=== PATIENT | male | born 1960 | race African-American/Black ===

== ENCOUNTER 2017-11-30 18:41 | Emergency (ER) | payer MEDICAID ==
[2017-11-30 22:16] LABS: BASOPHILS 0.1 % (0-2); EOSINOPHILS 0.5 % (0-7); HEMATOCRIT 40.9 % (42.0-54.0); HEMOGLOBIN 13.3 g/dL (13.5-17.5); IMMATURE GRANULOCYTES 1.8 % (0-5); LYMPHOCYTES 11.5 % (15-50); MCH 30.3 pg (26.0-34.0); MCHC 32.5 g/dL (31.0-37.0); MCV 93.2 fL (80.0-100.0); MEAN PLATELET VOLUME 9.5 fL (7.4-10.4); MONOCYTES 9.6 % (2-11); NEUTROPHILS 76.5 % (40-80); PLATELET COUNT 291 10x3/uL (130-400); RBC 4.39 10x6/uL (4.20-6.10); RDW 14.2 % (11.5-14.5); WBC 13.6 10x3/uL (4.8-10.8)
[2017-11-30 22:39] LABS: ALBUMIN 2.9 g/dL (3.4-5.0); ANION GAP 17.7 mmol/L (8-16); BILIRUBIN - TOTAL 0.2 mg/dL (0.2-1.3); CALCIUM 8.6 mg/dL (8.5-10.1); CARBON DIOXIDE 21.3 mmol/L (21.0-32.0); CREATININE - SERUM 1.2 mg/dL (0.6-1.3); PROTEIN - SERUM 8.3 g/dL (6.4-8.2)
[2017-11-30 22:51] LABS: THYROID STIMULATING HORMONE 6.03 uIU/mL (0.36-3.74)
[2017-11-30 23:11] LABS: APPEARANCE CLEAR (CLEAR); BILIRUBIN NEGATIVE (NEGATIVE); COLOR DK YELLOW (YELLOW); GLUCOSE NEGATIVE (NEGATIVE); KETONE SMALL mg/dL (NEGATIVE); NITRITE NEGATIVE (NEGATIVE); PROTEIN NEGATIVE (NEGATIVE); SPECIFIC GRAVITY 1.025 (1.005-1.020)
== END 2017-12-01 00:23 | disposition home or self-care (01) ==
LOC: D.ER 18:41
PROVIDERS: Physician Assistant Medical
DX: R60.0 Localized edema (principal); I50.9 Heart failure, unspecified; E11.9 Type 2 diabetes mellitus without complications; G62.9 Polyneuropathy, unspecified

== ENCOUNTER 2018-01-12 00:53 | Emergency (ER) | payer MEDICARE | END 2018-01-12 02:30 | disposition home or self-care (01) | LOC: D.ER 00:53 | DX: S93.402A Sprain of unspecified ligament of left ankle, initial encounter (principal); W01.0XXA Fall on same level from slipping, tripping and stumbling without subsequent striking against object, initial encounter; Y93.89 Activity, other specified; Y92.019 Unspecified place in single-family (private) house as the place of occurrence of the external cause; S93.602A Unspecified sprain of left foot, initial encounter; I50.9 Heart failure, unspecified; E11.9 Type 2 diabetes mellitus without complications ==

== ENCOUNTER 2018-08-04 13:07 | Emergency (ER) | payer MEDICARE ==
[~2018-08-04] VITALS: Ht 185.4 cm; Wt 191.4 kg
[2018-08-04 13:16] VITALS: Ht 185.4 cm; Wt 191.4 kg
[2018-08-04] MEDS ORDERED: CYMBALTA30 MG PO (13:17)
[2018-08-04] MEDS ORDERED: VITAMIN D250000 UNIT PO (13:18)
[2018-08-04] MEDS ORDERED: DEPAKOTE ER500 MG PO (13:18)
[2018-08-04] MEDS ORDERED: ELIQUIS5 MG PO (13:19)
[2018-08-04] MEDS ORDERED: FAMOTIDINE10 MG PO (13:19)
[2018-08-04] MEDS ORDERED: GLUCOPHAGE1000 MG PO (13:20)
[2018-08-04] MEDS ORDERED: METOPROLOL TART25 MG PO (13:20)
[2018-08-04] MEDS ORDERED: LASIX40 MG PO (13:20)
[2018-08-04] MEDS ORDERED: ISOSORBIDE MONO30 M1 PO (13:20)
[2018-08-04] MEDS ORDERED: TALWIN NX1 TAB PO (13:21)
[2018-08-04] MEDS ORDERED: KLOR-CON M2020 MEQ PO (13:22)
[2018-08-04] MEDS ORDERED: PROVERA10 MG PO (13:27)
[2018-08-04] MEDS ORDERED: SYNTHROID125 MCG PO (13:28)
[2018-08-04] MEDS ORDERED: TOPAMAX50 MG PO (13:28)
[2018-08-04] MEDS ORDERED: ULTRAM50 MG PO (17:18)
[2018-08-04 18:45] VITALS: BP 119/73
== END 2018-08-04 18:46 | disposition home or self-care (01) ==
LOC: D.ER 13:07
DX: S80.02XA Contusion of left knee, initial encounter (principal); S80.01XA Contusion of right knee, initial encounter; W06.XXXA Fall from bed, initial encounter; Y93.89 Activity, other specified; Y92.013 Bedroom of single-family (private) house as the place of occurrence of the external cause; E11.9 Type 2 diabetes mellitus without complications; I11.0 Hypertensive heart disease with heart failure; I50.9 Heart failure, unspecified

== ENCOUNTER 2018-09-06 13:57 | Inpatient (IN) | payer MEDICARE ==
[~2018-09-06] VITALS: Ht 188 cm; Wt 229.6 kg
--- NOTE | ~2018-09-06 | MORECARE ---
CASE MANAGEMENT DISCHARGE SUMMARY PATIENT: FITZ MATAMOROS UNIT: [id number] ADM DATE: 09/08/18 AGE: 58 : 60 SEX: M ROOM/BED: D.3335 AUTHOR: ARADOC PHYSICIAN: REFERRING PHYSICIAN: CHANCE MORLEY MD DATE OF SERVICE: 09/14/18 Discharge Plan Patient Name: FITZ MATAMOROS Facility: [facility]:[place] : 1960 Planned Disposition: Residential Facility Anticipated Discharge Date: 09/15/18 Discharge Date: Expected LOS: 7 Initial Reviewer: [id number] Initial Review Date: 09/06/2018 Generated: 09/14/18 4:37 pm Comments DCP- Discharge Planning Updated by [id number]: Tray Nielsen on 09/14/18 2:[address] Patient Name: FITZ MATAMOROS Encounter No: [id number] : 1960 Primary Insurance: MEDICARE A & B Anticipated DC Date: 09-15-2018 Planned Disposition: Residential Facility External Planned Provider: [facility], MEDICARE REHAB BED. DCP follow-up note: CM RECEIVED SRIRAM EXEMPTION. CM RECEIVED DENIALS FROM [facility] AND [facility]. CM SPOKE TO [facility], , WHO WILL ACCEPT PT, THEY WILL ACCEPT 09-15 THEY HAVE TO ORDER SPECIALTY EQUIPMENT PT IS OVER 500 LBS. FACILITY WILL CALL HOSPITAL TOMORROW WHEN READY TO ACCEPT PATIENT. CM PAGED AND SPOKE TO DR. MORLEY, NOTIFIED OF DISCHARGE ARRANGEMENTS FOR TOMORROW, 09-15. CM CALLED AND SPOKE TO MAGUI MATAMROOS, , WHO IS IN AGREEMENT WITH PLAN FOR DISCHARGE TO [facility]. CM SPOKE TO PT WHO IS IN AGREEMENT WITH PLAN. IMPORTANT MESSAGE FROM MEDICARE PROVIDED AND EXPLAINED. CM FAXED UPDATE AND SRIRAM EXEMPTION TO [facility] AT [phone]. [facility] TO CALL [facility] 09-15-18 WHEN READY TO ACCEPT REPORT AND RECEIVE PT. FAX DISCHARGE INFORMATION TO [facility] AT [phone]. NURSE REPORT TO BE CALLED TO [facility] AT [phone]. [facility] TO ARRANGE VAN TRANSPORTATION. Tray Nielsen CASE MANAGEMENT DCP- Discharge Planning Updated by [id number]: Tray Nielsen on 09/13/18 12:[address] Patient Name: FITZ MATAMOROS Encounter No: [id number] : 1960 Primary Insurance: MEDICARE A & B Anticipated DC Date: 09-11-2018 Planned Disposition: Residential Facility External Planned Provider: [facility] DCP follow-up note: CM RECEVIED REQUEST FROM [facility] REQUESTING REFAX OF [facility] AND DOCUMENTS. CM REFAXED REQUESTED DOCUMENTS TO [facility] AT [phone]. CM RECEIVED DENIALS FROM: [facility], [place], [facility] AND [place]. CM RECEIVED CALLS FROM [facility] AND [facility] WHO ARE STILL CONSIDERING PT FOR REHAB ADMISSION. CM RECEIVED CALL FROM MAGUI MATAMOROS AND UPDATED ON PROGRESS AND DENIALS SO FAR. CM WAITING COMPLETION OF SRIRAM SCREENING AND DETERMINATION. CM WAITING ADMISSION DETERMINATIONS FOR REHAB FROM: [facility], [place], [facility], [facility], [facility], [place] AND [facility]. Tray Nielsen, CASE MANAGEMENT DCP- Discharge Planning Updated by [id number]: Tray Nielsen on 09/12/18 5:[address] Patient Name: FITZ MATAMOROS Encounter No: [id number] : 1960 Primary Insurance: MEDICARE A & B Anticipated DC Date: 09-11-2018 Planned Disposition: Residential Facility External Planned Provider: [facility], MEDICARE REHAB BED DCP follow-up note: CM RECEIVED MESSAGE FROM [facility] WHO INFORMED CM THAT [facility] WOULD ACCEPT PT BUT FAMILY DOES NOT WANT PT PLACED IN [facility]. CM MET WITH PT IN ROOM, CALLED MAGUI VIA PHONE FROM ROOM, . MAGUI INFORMED CM THAT [facility] WAS MISTAKEN, THEY DO WANT SKILLED REHAB, JUST NOT AT [facility] PT'S PAYEE (SISTER IN LAW / TARIK SPOUSE) VISITED [facility] AND FOUND THE FACILITY TO BE UNACCEPTABLE FOR REHAB PLACEMENT. THEY HAVE NO PREFERENCE ON FACILITY IN [place] OR [place] WITH EXCEPTION OF [facility]. SRIRAM COMPLETED WITH ASSISTANCE OF PT AND MAGUI. CHOICE LETTER COMPLETED. CM FAXED SRIRAM TO DR. MORLEY'S OFFICE, CALLED AND PROVIDED UPDATE TO ELOISA AT DR. BALDWIN OFFICE AND ASKED TO GET FORMS SIGNED SOON POSSIBLE. CM LATER CALLED DR. MORLEY'S OFFICE, SPOKE DIRECTLY TO AND PROVIDED UPDATE AND ASKED FOR SIGNED FORM RETURN TO COMPLETE SRIRAM SCREENING. CM RECEIVED [facility] SCREENING, FAXED TO [facility] AT [phone]. CM FAXED REFERRALS FOR [facility], [facility], [facility], [place], [facility], [place], [place], [facility] [facility], [facility], [facility]. CM WAITING COMPLETION OF SRIRAM SCREENING AND DETERMINATION. CM WAITING ADMISSION DETERMINATIONS FOR REHAB FROM: [facility], [facility], [facility], [facility], [place], [place], [facility], [facility], [facility]. Tray Nielsen, CASE MANAGEMENT DCP- Discharge Planning Updated by [id number]: Tray Nielsen on 09/11/18 4:[address] Patient Name: [facility] Admission Status: ER Accout number: [id number] Admission Date: 09-08-2018 : 1960 Admission Diagnosis: Attending: CHANCE MORLEY Current LOS: 3 Anticipated DC Date: 09-11-2018 Planned Disposition: Residential Facility Primary Insurance: MEDICARE A & B PLANNED EXTERNAL PROVIDER: [facility] OR [place], MEDICARE REHAB BED Discharge Planning Comments: CM RECEIVED CALL FROM MAGUI MATAMOROS, . MAGUI REPORTS BEING PT'S BROTHER, PT LIVES WITH FAMILY AT [facility]. MAGUI REPORTS PT WAS IN REHAB AT [facility] 3-4 WEEKS AGO AND NOW CANNOT WALK WELL ENOUGH TO COME HOME. PT NEEDS REHAB TO COME BACK HOME AND HE HAS NO PREFERENCE ON PROVIDER OF REHAB. CM CONTACTED INPATIENT REHAB AT [facility] WHO DECLINED PT THEY FEEL THAT PT WILL NOT BE ABLE TO GO BACK HOME AT DISCHARGE. CM MET WITH PT IN ROOM TO DISCUSS DISCHARGE PLANNING AND NEEDS. PT REPORTS SPEAKING TO HIS BROTHER AND IS IN AGREEMENT WITH REHAB ANYWHERE. PT IS LIVING HIS BROTHER'S HOME, REPORTS TO BE INDEPENDENT IN HIS CARE AT HOME. PT USES A WALKER AT HOME AND HAS NO MEDICAL EQUIPMENT PROVIDER PREFERENCE . PT HAS [facility] HAS BEEN SEEING PT AT HOME FOR NURSING AND THERAPY. CM DISCUSSED AVAILABILITY OF HOME HEALTH, REHAB SERVICES AND MEDICAL EQUIPMENT. PT SIGNED CHOICE FOR [facility] OR [facility], REPORTS HIS BROTHER WILL PICK HIM UP FOR DISCHARGE HOME. IMPORTANT MESSAGE FROM MEDICARE PROVIDED AND EXPLAINED. CM NOTIFIED [facility] AND [facility], , OF REFERRAL WITH DISCHARGE ORDER. CM FAXED REFERRAL TO [facility] AT [phone]. CM WAITING ADMISSION DETERMINATIONS FROM THE [facility]. Bowl Attendant: Tray Nielsen Appended by Tray Nielsen on 09/11/2018 17:10 MARKET STALL VENDOR: CM RECEIVED CALL FROM [facility] WHO INFORMED CM THAT PT WILL REQUIRE [facility] ASSESSMENT FOR [facility] ADMISSION DUE TO POSSIBLE MENTAL RETARDATION NOTED IN CHART. CM TO COMPLETE AND SUBMIT FOR [facility] SCREENING SOON POSSIBLE. CM WAITING ADMISSION DETERMINATIONS FROM THE [facility]. Bowl Attendant: Tray Nielsen Coverage Notice Reviewer: [id number] Timmy Nielsen Notice Issued Date-Time: 09/14/2018 15:18 Notice Type: IM Discharge Notice Notice Delivered To: Patient Relationship to Patient: Firmware Test Engineer Name: Delivery Method: HAND - Hand Delivered Yvonne Days: Prior Verbal Notification: Recipient Understood Notice: Yes Recipient Signature: Yes Med Rec Note Co-signed by Attending: Coverage Notice Comment: Reviewer: [id number] Nielsen Notice Issued Date-Time: 09/11/2018 11:10 Notice Type: IM Discharge Notice Notice Delivered To: Patient Relationship to Patient: Firmware Test Engineer Name: Delivery Method: HAND - Hand Delivered Yvonne Days: Prior Verbal Notification: Recipient Understood Notice: Yes Recipient Signature: Yes Med Rec Note Co-signed by Attending: Coverage Notice Comment: Reviewer: [id number] Timmy Fournier Notice Issued Date-Time: 09/07/2018 17:47 Notice Type: Medicare Outpatient Observation Notice Notice Delivered To: Patient Relationship to Patient: Self Firmware Test Engineer Name: Delivery Method: HAND - Hand Delivered Yvonne Days: Prior Verbal Notification: Recipient Understood Notice: Yes Recipient Signature: Yes Med Rec Note Co-signed by Attending: Coverage Notice Comment: Reviewer: [id number] Timmy Nielsen Notice Issued Date-Time: 09/11/2018 11:10 Notice Type: Patient Choice Letter Notice Delivered To: Patient Relationship to Patient: Firmware Test Engineer Name: Delivery Method: HAND - Hand Delivered Yvonne Days: Prior Verbal Notification: Recipient Understood Notice: Yes Recipient Signature: Yes Med Rec Note Co-signed by Attending: Coverage Notice Comment: [facility] Reviewer: [id number] Timmy Nielsen Notice Issued Date-Time: 09/12/2018 10:00 Notice Type: Patient Choice Letter Notice Delivered To: Family Member Relationship to Patient: Brother Firmware Test Engineer Name: MAGUI MATAMOROS Delivery Method: PHONE - Phone Yvonne Days: Prior Verbal Notification: Recipient Understood Notice: Yes Recipient Signature: Yes Med Rec Note Co-signed by Attending: Coverage Notice Comment: ALL [facility]. Last DP export: 09/14/18 2:28 Patient Name: FITZ MATAMOROS Page [id number] at 1537 All edits/amendments must be made on the electronic document DICTATION DATE: 09/14/18 1536 SCOOP OPERATOR: JUAN LUIS 09/14/18 1536 RPT#: [id number] DC DATE: STATUS: ADM IN [facility] [address] [place] [address] END OF REPORT
--- NOTE | ~2018-09-06 | MORECARE ---
CASE MANAGEMENT DISCHARGE SUMMARY PATIENT: FITZ MATAMOROS UNIT: [id number] ADM DATE: 09/08/18 AGE: 58 : 60 SEX: M ROOM/BED: D.2135 AUTHOR: FAVIO BULLOCK PHYSICIAN: REFERRING PHYSICIAN: CHANCE MORLEY MD DATE OF SERVICE: 09/11/18 Discharge Plan Patient Name: FITZ MATAMOROS [facility] [facility] 1960 Planned Disposition: Correction Facility Anticipated Discharge Date: 09/11/18 Discharge Date: Expected LOS: 3 Initial Reviewer: [id number] Initial Review Date: 09/06/2018 Generated: 09/11/18 3:04 pm External Providers External Provider: [facility] Next Contact Date: 09/11/2018 Service Request Date: Service Type: Resolution: Reviewer: Comments: External Provider: [facility] Next Contact Date: 09/11/2018 Service Request Date: Service Type: Resolution: Reviewer: Comments: Coverage Notice Reviewer: [id number] Timmy Fournier Notice Issued Date-Time: 09/07/2018 17:47 Notice Type: Medicare Outpatient Observation Notice Notice Delivered To: Patient Relationship to Patient: Self Coffee Sampler Name: Delivery Method: HAND - Hand Delivered Yvonne Days: Prior Verbal Notification: Recipient Understood Notice: Yes Recipient Signature: Yes Med Rec Note Co-signed by Attending: Coverage Notice Comment: Reviewer: [id number] Timmy Nielsen Notice Issued Date-Time: 09/11/2018 11:10 Notice Type: IM Discharge Notice Notice Delivered To: Patient Relationship to Patient: Coffee Sampler Name: Delivery Method: HAND - Hand Delivered Yvonne Days: Prior Verbal Notification: Recipient Understood Notice: Yes Recipient Signature: Yes Med Rec Note Co-signed by Attending: Coverage Notice Comment: Reviewer: [id number] Nielsen Notice Issued Date-Time: 09/11/2018 11:10 Notice Type: Patient Choice Letter Notice Delivered To: Patient Relationship to Patient: Coffee Sampler Name: Delivery Method: HAND - Hand Delivered Yvonne Days: Prior Verbal Notification: Recipient Understood Notice: Yes Recipient Signature: Yes Med Rec Note Co-signed by Attending: Coverage Notice Comment: [facility] Patient Name: FITZ AMTAMOROS Page 11134 at 1404 All edits/amendments must be made on the electronic document DICTATION DATE: 09/11/181402 DRAG OUT WORKER: JUAN LUIS 09/11/181402 RPT#: [id number] DC DATE: STATUS: ADM IN [facility] [address] [place] [address] END OF REPORT
--- NOTE | ~2018-09-06 | MORECARE ---
CASE MANAGEMENT DISCHARGE SUMMARY PATIENT: FITZ MATAMOROS UNIT: [id number] ADM DATE: 09/08/18 AGE: 58 : 60 SEX: M ROOM/BED: D.3322 AUTHOR: ARA,DOC PHYSICIAN: REFERRING PHYSICIAN: CHANCE MORLEY MD DATE OF SERVICE: 09/12/18 Discharge Plan Patient Name: FITZ MATAMOROS [facility] [facility] 1960 Planned Disposition: Penitentiary Facility Anticipated Discharge Date: 09/11/18 Discharge Date: Expected LOS: 3 Initial Reviewer: [id number] Initial Review Date: 09/06/2018 Generated: 09/12/18 6:59 pm Comments DCP- Discharge Planning Updated by [id number]: Tray Nielsen on 09/11/18 4:[address] Patient Name: FITZ MATAMOROS Admission Status: ER Accout number: [id number] Admission Date: 09-08-2018 : 1960 Admission Diagnosis: Attending: CHANCE MORLEY Current LOS: 3 Anticipated DC Date: 09-11-2018 Planned Disposition: Penitentiary Facility Primary Insurance: MEDICARE A & B PLANNED EXTERNAL PROVIDER: [facility] OR [place], MEDICARE REHAB BED Discharge Planning Comments: CM RECEIVED CALL FROM MAGUI SHILOH, . MAGUI REPORTS BEING PT'S BROTHER, PT LIVES WITH FAMILY AT [facility]. MAGUI REPORTS PT WAS IN REHAB AT [facility] 3-4 WEEKS AGO AND NOW CANNOT WALK WELL ENOUGH TO COME HOME. PT NEEDS REHAB TO COME BACK HOME AND HE HAS NO PREFERENCE ON PROVIDER OF REHAB. CM CONTACTED INPATIENT REHAB AT [facility] WHO DECLINED PT THEY FEEL THAT PT WILL NOT BE ABLE TO GO BACK HOME AT DISCHARGE. CM MET WITH PT IN ROOM TO DISCUSS DISCHARGE PLANNING AND NEEDS. PT REPORTS SPEAKING TO HIS BROTHER AND IS IN AGREEMENT WITH REHAB ANYWHERE. PT IS LIVING HIS BROTHER'S HOME, REPORTS TO BE INDEPENDENT IN HIS CARE AT HOME. PT USES A WALKER AT HOME AND HAS NO MEDICAL EQUIPMENT PROVIDER PREFERENCE . PT HAS [facility] HAS BEEN SEEING PT AT HOME FOR NURSING AND THERAPY. CM DISCUSSED AVAILABILITY OF HOME HEALTH, REHAB SERVICES AND MEDICAL EQUIPMENT. PT SIGNED CHOICE FOR [facility] OR [facility], REPORTS HIS BROTHER WILL PICK HIM UP FOR DISCHARGE HOME. IMPORTANT MESSAGE FROM MEDICARE PROVIDED AND EXPLAINED. CM NOTIFIED [facility] AND [facility], , OF REFERRAL WITH DISCHARGE ORDER. CM FAXED REFERRAL TO [facility] AT [phone]. CM WAITING ADMISSION DETERMINATIONS FROM THE [facility]. Wool Dyer: Tray Nielsen Appended by Tray Nielsen on 09/11/2018 17:10 HEATING AND VENTILATING DRAFTER: CM RECEIVED CALL FROM [facility] WHO INFORMED CM THAT PT WILL REQUIRE [facility] ASSESSMENT FOR [facility] F[facility]ILITY ADMISSION DUE TO POSSIBLE MENTAL RETARDATION NOTED IN CHART. CM TO COMPLETE AND SUBMIT FOR [facility] SCREENING SOON POSSIBLE. CM WAITING ADMISSION DETERMINATIONS FROM THE [facility]. Wool Dyer: Tray Nielsen External Providers External Provider: [facility] Next Contact Date: 09/13/2018 Service Request Date: Service Type: Resolution: Reviewer: Comments: External Provider: [facility] Next Contact Date: 09/13/2018 Service Request Date: Service Type: Resolution: Reviewer: Comments: External Provider: [facility] Next Contact Date: 09/13/2018 Service Request Date: Service Type: Resolution: Reviewer: Comments: [facility] Next Contact Date: 09/13/2018 Service Request Date: Service Type: Resolution: Reviewer: Comments: Coverage Notice Reviewer: [id number] Timmy Fournier Notice Issued Date-Time: 09/07/2018 17:47 Notice Type: Medicare Outpatient Observation Notice Notice Delivered To: Patient Relationship to Patient: Self Crusher Name: Delivery Method: HAND - Hand Delivered Yvonne Days: Prior Verbal Notification: Recipient Understood Notice: Yes Recipient Signature: Yes Med Rec Note Co-signed by Attending: Coverage Notice Comment: Reviewer: [id number] Timmy Nielsen Notice Issued Date-Time: 09/11/2018 11:10 Notice Type: Patient Choice Letter Notice Delivered To: Patient Relationship to Patient: Crusher Name: Delivery Method: HAND - Hand Delivered Yvonne Days: Prior Verbal Notification: Recipient Understood Notice: Yes Recipient Signature: Yes Med Rec Note Co-signed by Attending: Coverage Notice Comment: [facility] SN[facility] REHAB Reviewer: [id number] Timmy Nielsen Notice Issued Date-Time: 09/11/2018 11:10 Notice Type: IM Discharge Notice Notice Delivered To: Patient Relationship to Patient: Crusher Name: Delivery Method: HAND - Hand Delivered Yvonne Days: Prior Verbal Notification: Recipient Understood Notice: Yes Recipient Signature: Yes Med Rec Note Co-signed by Attending: Coverage Notice Comment: Last DP export: 09/12/18 4:52 Patient Name: FITZ MATAMOROS Page [phone] at 1759 All edits/amendments must be made on the electronic document DICTATION DATE: 09/12/181757 ORDER TAKERS SUPERVISOR: JUAN LUIS 09/12/181757 RPT#: [id number] [place] DATE: STATUS: ADM IN [facility] [address] [place] [address] END OF REPORT
--- NOTE | ~2018-09-06 | MORECARE ---
CASE MANAGEMENT DISCHARGE SUMMARY PATIENT: FITZ MATAMOROS UNIT: [id number] ADM DATE: 09/08/18 AGE: 58 : 60 SEX: M ROOM/BED: D.5947 AUTHOR: ARA,DOC PHYSICIAN: REFERRING PHYSICIAN: CHANCE MORLEY MD DATE OF SERVICE: 09/12/18 Discharge Plan Patient Name: FITZ MATAMOROS [facility] [facility] 1960 Planned Disposition: Prison Facility Anticipated Discharge Date: 09/11/18 Discharge Date: Expected LOS: 3 Initial Reviewer: [id number] Initial Review Date: 09/06/2018 Generated: 09/12/18 6:45 pm Comments DCP- Discharge Planning Updated by [id number]: Tray Nielsen on 09/11/18 4:[address] Patient Name: FITZ MATAMOROS Admission Status: ER Accout number: [id number] Admission Date: 09-08-2018 : 1960 Admission Diagnosis: Attending: CHANCE MORLEY Current LOS: 3 Anticipated DC Date: 09-11-2018 Planned Disposition: Prison Facility Primary Insurance: MEDICARE A & B PLANNED EXTERNAL PROVIDER: [facility] OR [facility] [facility], MEDICARE REHAB BED Discharge Planning Comments: CM RECEIVED CALL FROM MAGUI SHILOH, . MAGUI REPORTS BEING PT'S BROTHER, PT LIVES WITH FAMILY AT [facility]. MAGUI REPORTS PT WAS IN REHAB AT [facility] 3-4 WEEKS AGO AND NOW CANNOT WALK WELL ENOUGH TO COME HOME. PT NEEDS REHAB TO COME BACK HOME AND HE HAS NO PREFERENCE ON PROVIDER OF REHAB. CM CONTACTED INPATIENT REHAB AT [facility] WHO DECLINED PT THEY FEEL THAT PT WILL NOT BE ABLE TO GO BACK HOME AT DISCHARGE. CM MET WITH PT IN ROOM TO DISCUSS DISCHARGE PLANNING AND NEEDS. PT REPORTS SPEAKING TO HIS BROTHER AND IS IN AGREEMENT WITH REHAB ANYWHERE. PT IS LIVING HIS BROTHER'S HOME, REPORTS TO BE INDEPENDENT IN HIS CARE AT HOME. PT USES A WALKER AT HOME AND HAS NO MEDICAL EQUIPMENT PROVIDER PREFERENCE . PT HAS [facility] HAS BEEN SEEING PT AT HOME FOR NURSING AND THERAPY. CM DISCUSSED AVAILABILITY OF HOME HEALTH, REHAB SERVICES AND MEDICAL EQUIPMENT. PT SIGNED CHOICE FOR [facility], REPORTS HIS BROTHER WILL PICK HIM UP FOR DISCHARGE HOME. IMPORTANT MESSAGE FROM MEDICARE PROVIDED AND EXPLAINED. CM NOTIFIED [facility] AND [facility], , OF REFERRAL WITH DISCHARGE ORDER. CM FAXED REFERRAL TO [facility] AT [phone]. CM WAITING ADMISSION DETERMINATIONS FROM THE [facility]. Manager Asset: Tray Nielsen Appended by Tray Nielesn on 09/11/2018 17:10 MINE FOREMAN: CM RECEIVED CALL FROM [facility] WHO INFORMED CM THAT PT WILL REQUIRE [facility] ASSESSMENT FOR [facility] ADMISSION DUE TO POSSIBLE MENTAL RETARDATION NOTED IN CHART. CM TO COMPLETE AND SUBMIT FOR [facility] SCREENING SOON POSSIBLE. CM WAITING ADMISSION DETERMINATIONS FROM THE [facility]. Manager Asset: Tray Nielsen External Providers External Provider: [facility] Next Contact Date: 09/13/2018 Service Request Date: Service Type: Resolution: Reviewer: Comments: External Provider: [facility] Next Contact Date: 09/13/2018 Service Request Date: Service Type: Resolution: Reviewer: Comments: External Provider: [facility] Next Contact Date: 09/13/2018 Service Request Date: Service Type: Resolution: Reviewer: Comments: Coverage Notice Reviewer: [id number] Timmy Fournier Notice Issued Date-Time: 09/07/2018 17:47 Notice Type: Medicare Outpatient Observation Notice Notice Delivered To: Patient Relationship to Patient: Self Gas Maker Helper Name: Delivery Method: HAND - Hand Delivered Yvonne Days: Prior Verbal Notification: Recipient Understood Notice: Yes Recipient Signature: Yes Med Rec Note Co-signed by Attending: Coverage Notice Comment: Reviewer: [id number] Timmy Nielsen Notice Issued Date-Time: 09/11/2018 11:10 Notice Type: Patient Choice Letter Notice Delivered To: Patient Relationship to Patient: Gas Maker Helper Name: Delivery Method: HAND - Hand Delivered Yvonne Days: Prior Verbal Notification: Recipient Understood Notice: Yes Recipient Signature: Yes Med Rec Note Co-signed by Attending: Coverage Notice Comment: [facility] Reviewer: [id number] Timmy Nielsen Notice Issued Date-Time: 09/11/2018 11:10 Notice Type: IM Discharge Notice Notice Delivered To: Patient Relationship to Patient: Gas Maker Helper Name: Delivery Method: HAND - Hand Delivered Yvonne Days: Prior Verbal Notification: Recipient Understood Notice: Yes Recipient Signature: Yes Med Rec Note Co-signed by Attending: Coverage Notice Comment: Last DP export: 09/12/18 4:38 Patient Name: FITZ MATAMOROS Page [id number] at 1745 All edits/amendments must be made on the electronic document DICTATION DATE: 09/12/181744 TUBING MILL SETTER: JUAN LUIS 09/12/181744 RPT#: [id number] DC DATE: STATUS: ADM IN [facility] [address] [place] [address] END OF REPORT
--- NOTE | ~2018-09-06 | MORECARE ---
CASE MANAGEMENT DISCHARGE SUMMARY PATIENT: FITZ MATAMOROS UNIT: [id number] ADM DATE: 09/08/18 AGE: 58 : 60 SEX: M ROOM/BED: D.4467 AUTHOR: FAVIO BULLOCK PHYSICIAN: REFERRING PHYSICIAN: CHANCE MORLEY MD DATE OF SERVICE: 09/14/18 Discharge Plan Patient Name: FITZ MATAMOROS Facility: [facility]:[place] : 1960 Planned Disposition: Alf Facility Anticipated Discharge Date: 09/15/18 Discharge Date: Expected LOS: 7 Initial Reviewer: [id number] Initial Review Date: 09/06/2018 Generated: 09/14/18 4:28 pm Comments DCP- Discharge Planning Updated by [id number]: Tray Nielsen on 09/13/18 12:[address] Patient Name: FITZ MATAMOROS Encounter No: [id number] : 1960 Primary Insurance: MEDICARE A & B Anticipated DC Date: 09-11-2018 Planned Disposition: Alf Facility External Planned Provider: [facility] DCP follow-up note: CM RECEVIED REQUEST FROM [facility] REQUESTING REFAX OF [facility]IR[facility] AND DOCUMENTS. CM REFAXED REQUESTED DOCUMENTS TO [facility] AT [phone]. CM RECEIVED DENIALS FROM: [facility], [facility], [facility] AND [facility]. CM RECEIVED CALLS FROM [facility] AND [facility] WHO ARE STILL CONSIDERING PT FOR REHAB ADMISSION. CM RECEIVED CALL FROM MAGUI MATAMOROS AND UPDATED ON PROGRESS AND DENIALS SO FAR. CM WAITING COMPLETION OF SRIRAM SCREENING AND DETERMINATION. CM WAITING ADMISSION DETERMINATIONS FOR REHAB FROM: [facility], [facility], [facility], [facility], [facility], [facility] AND [facility]. Tray Nielsen, CASE MANAGEMENT DCP- Discharge Planning Updated by [id number]: Tray Nielsen on 09/12/18 5:[address] Patient Name: FITZ MATAMOROS Encounter No: [id number] : 1960 Primary Insurance: MEDICARE A & B Anticipated DC Date: 09-11-2018 Planned Disposition: Alf Facility External Planned Provider: [facility], MEDICARE REHAB BED DCP follow-up note: CM RECEIVED MESSAGE FROM [facility] WHO INFORMED CM THAT [facility] WOULD ACCEPT PT BUT FAMILY DOES NOT WANT PT PLACED IN [facility] REHAB. CM MET WITH PT IN ROOM, CALLED MAGUI VIA PHONE FROM ROOM, . MAGUI INFORMED CM THAT [facility] WAS MISTAKEN, THEY DO WANT SKILLED REHAB, JUST NOT AT [facility] PT'S PAYEE (SISTER IN LAW / TARIK SPOUSE) VISITED [facility] AND FOUND THE FACILITY TO BE UNACCEPTABLE FOR REHAB PLACEMENT. THEY HAVE NO PREFERENCE ON FACILITY IN [place] OR SUR[place]OUNDING AREA WITH EXCEPTION OF [facility] AND REHAB. SRIRAM COMPLETED WITH ASSISTANCE OF PT AND MAGUI. CHOICE LETTER COMPLETED. CM FAXED SRIRAM TO DR. MORLEY'S OFFICE, CALLED AND PROVIDED UPDATE TO ELOISA AT DR. BALDWIN OFFICE AND ASKED TO GET FORMS SIGNED SOON POSSIBLE. CM LATER CALLED DR. MORLEY'S OFFICE, SPOKE DIRECTLY TO AND PROVIDED UPDATE AND ASKED FOR SIGNED FORM RETURN TO COMPLETE SRIRAM SCREENING. CM RECEIVED SRIRAM SCREENING, FAXED TO [facility] AT [phone]. CM FAXED REFERRALS FOR [facility]CRE[facility], [facility], [facility], [facility], [facility], [facility], [facility], [facility]. CM WAITING COMPLETION OF SRIRAM SCREENING AND DETERMINATION. CM WAITING ADMISSION DETERMINATIONS FOR REHAB FROM: [facility], [facility], [facility], [facility], [facility], [facility], [facility], [facility]. Tray Nielsen, CASE MANAGEMENT DCP- Discharge Planning Updated by [id number]: Tray Nielsen on 09/11/18 4:[address] Patient Name: MADILL MATAMOROS Admission Status: ER Accout number: [id number] Admission Date: 09-08-2018 : 1960 Admission Diagnosis: Attending: CHANCE MORLEY Current LOS: 3 Anticipated DC Date: 09-11-2018 Planned Disposition: Alf Facility Primary Insurance: MEDICARE A & B PLANNED EXTERNAL PROVIDER: [facility] OR [facility], MEDICARE REHAB BED Discharge Planning Comments: CM RECEIVED CALL FROM MAGUI MATAMOROS, . MAGUI REPORTS BEING PT'S BROTHER, [facility]. MAGUI REPORTS PT WAS IN REHAB AT [facility] 3-4 WEEKS AGO AND NOW CANNOT WALK WELL ENOUGH TO COME HOME. PT NEEDS REHAB TO COME BACK HOME AND HE HAS NO PREFERENCE ON PROVIDER OF REHAB. CM CONTACTED INPATIENT REHAB AT [place] WHO DECLINED PT THEY FEEL THAT PT WILL NOT BE ABLE TO GO BACK HOME AT DISCHARGE. CM MET WITH PT IN ROOM TO DISCUSS DISCHARGE PLANNING AND NEEDS. PT REPORTS SPEAKING TO HIS BROTHER AND IS IN AGREEMENT WITH REHAB ANYWHERE. PT IS LIVING HIS BROTHER'S HOME, REPORTS TO BE INDEPENDENT IN HIS CARE AT HOME. PT USES A WALKER AT HOME AND HAS NO MEDICAL EQUIPMENT PROVIDER PREFERENCE . PT HAS [facility] HAS BEEN SEEING PT AT HOME FOR NURSING AND THERAPY. CM DISCUSSED AVAILABILITY OF HOME HEALTH, REHAB SERVICES AND MEDICAL EQUIPMENT. PT SIGNED CHOICE FOR [facility] OR [facility], REPORTS HIS BROTHER WILL PICK HIM UP FOR DISCHARGE HOME. IMPORTANT MESSAGE FROM MEDICARE PROVIDED AND EXPLAINED. [facility], , OF REFERRAL WITH DISCHARGE ORDER. CM FAXED REFERRAL TO [facility] AT [phone]. CM WAITING ADMISSION DETERMINATIONS FROM THE [facility]. Branch General Manager: Tray Nielsen Appended by Tray Nielsen on 09/11/2018 17:10 SINGLE CORNER CUTTER: CM RECEIVED CALL FROM [facility] WHO INFORMED CM THAT PT WILL REQUIRE [facility] ASSESSMENT FOR [facility] ADMISSION DUE TO POSSIBLE MENTAL RETARDATION NOTED IN CHART. CM TO COMPLETE AND SUBMIT FOR [facility] SCREENING SOON POSSIBLE. CM WAITING ADMISSION DETERMINATIONS FROM THE [facility]. Branch General Manager: Tray Nielsen Coverage Notice Reviewer: [id number] - Suzanne Fournier Notice Issued Date-Time: 09/07/2018 17:47 Notice Type: Medicare Outpatient Observation Notice Notice Delivered To: Patient Relationship to Patient: Self Network Analyst Name: Delivery Method: HAND - Hand Delivered Yvonne Days: Prior Verbal Notification: Recipient Understood Notice: Yes Recipient Signature: Yes Med Rec Note Co-signed by Attending: Coverage Notice Comment: Reviewer: [id number] - Tray Nielsen Notice Issued Date-Time: 09/11/2018 11:10 Notice Type: IM Discharge Notice Notice Delivered To: Patient Relationship to Patient: Network Analyst Name: Delivery Method: HAND - Hand Delivered Yvonne Days: Prior Verbal Notification: Recipient Understood Notice: Yes Recipient Signature: Yes Med Rec Note Co-signed by Attending: Coverage Notice Comment: Reviewer: LORY Nielsen Notice Issued Date-Time: 09/11/2018 11:10 Notice Type: Patient Choice Letter Notice Delivered To: Patient Relationship to Patient: Network Analyst Name: Delivery Method: HAND - Hand Delivered Yvonne Days: Prior Verbal Notification: Recipient Understood Notice: Yes Recipient Signature: Yes Med Rec Note Co-signed by Attending: Coverage Notice Comment: [facility] Reviewer: LORY Nielsen Notice Issued Date-Time: 09/12/2018 10:00 Notice Type: Patient Choice Letter Notice Delivered To: Family Member Relationship to Patient: Brother Network Analyst Name: MAGUI MATAMOROS Delivery Method: PHONE - Phone Yvonne Days: Prior Verbal Notification: Recipient Understood Notice: Yes Recipient Signature: Yes Med Rec Note Co-signed by Attending: Coverage Notice Comment: ALL [facility] [place] [place]. Reviewer: LORY Nielsen Notice Issued Date-Time: 09/14/2018 15:18 Notice Type: IM Discharge Notice Notice Delivered To: Patient Relationship to Patient: Network Analyst Name: Delivery Method: HAND - Hand Delivered Yvonne Days: Prior Verbal Notification: Recipient Understood Notice: Yes Recipient Signature: Yes Med Rec Note Co-signed by Attending: Coverage Notice Comment: Last DP export: 09/13/18 12:09 Patient Name: FITZ MATAMOROS Page [phone] at 1528 All edits/amendments must be made on the electronic document DICTATION DATE: 09/14/18 1527 SPRING TACKER: JUAN LUIS 09/14/18 1527 RPT#: [id number] DC DATE: STATUS: ADM IN [facility] [address] [place] [address] END OF REPORT
--- NOTE | ~2018-09-06 | EC ---
PATIENT:FITZ MATAMOROS DATE OF SERVICE: 09/06/18 SEX: M MEDICAL RECORD: [id number] DATE OF : 60 LOCATION:D.M2 D.213 AGE OF PATIENT: 58 ADMISSION DATE: 09/08/18 REFERRING PHYSICIAN: INTERPRETING PHYSICIAN: FRANCISCO GIBSON MD ECHOCARDIOGRAM REPORT ECHO CHARGES 4 ECHO COMPLETE Date: 09/07/18 CLINICAL DIAGNOSIS: WEAKNESS/TIA ECHOCARDIOGRAPHIC MEASUREMENTS (adult normal given) AC root (d.<3.7cm) 3.9 cm LV Septum d (<1.2 cm> 1.5 cm Valve Excursion 2.2 cm LV Septum (systole) 1.6 cm Left Atria (s.<4.0cm> 4.7 cm LVPW d(<1.2cm) 1.5 cm RV (d.<2.3cm) 3.2 cm LVPW (sytole) 1.8 cm LV diastole(<5.6CM) 5.6 cm MV E-F(>70mm/sec) cm LV systole 3.1 cm LVOT Diameter 2.2 cm MV exc.(>10mm) 2.0 cm Est.ejection fraction (50-75%) % DOPPLER: LVIT cm/sec A 102 cm/sec E 35.0 cm/sec LA cm/sec RVSP 13 mmHg LVOT 86 cm/sec AOP1/2T m/s Asc. Ao 111 cm/sec RVOT 71 cm/sec RA cm/sec PA 93 cm/sec AV Gradient Peak 4.94 mmHg AV Mean 2.46 mmHg AV Area 2.0 cm MV Gradient Peak 9.03 mmHg MV Mean 2.47 mmHg MV Area cm COMMENTS: Apprentice Cosmetologist: Nedra CHUA Turbine Subassembler: 1 Dr. Gibson TAPE# PACS Pericardial Effusion N DATE OF SERVICE: 09/07/2018 PROCEDURE: Echocardiogram. FINDINGS: 1. Left ventricle chamber size is within normal limits. Left ventricular systolic function is normal. Overall ejection fraction estimated at 55%. 2. Left atrium is enlarged at 4.7 cm. Right atrium and right ventricle chamber sizes are as well mildly dilated. 3. Valvular structure have normal structure and motion. ECHOCARDIOGRAM REPORT [id number] FITZ MATAMOROS 4. Doppler interrogation reveals no significant valvular insufficiency or stenosis. Pulmonary systolic pressure is estimated at 13 mmHg. 5. No evidence of pericardial effusion or left ventricular thrombus. TRANSINT:[id number] Voice Confirmation ID: [id number] DOCUMENT ID: [id number] FRANCISCO GIBSON MD at 1031 CC: [id number] DICTATION DATE: 09/07/18 1356 RENTAL MANAGEMENT TRAINEE: 09/07/18 1454 ADM IN [facility] [address] [place] [address]
--- NOTE | ~2018-09-06 | MORECARE ---
CASE MANAGEMENT DISCHARGE SUMMARY PATIENT: FITZ MATAMOROS UNIT: [id number] ADM DATE: 09/08/18 AGE: 58 : 60 SEX: M ROOM/BED: D.2885 AUTHOR: ARADOC PHYSICIAN: REFERRING PHYSICIAN: CHANCE MORLEY MD DATE OF SERVICE: 09/17/18 Discharge Plan Patient Name: FITZ MATAMOROS Facility: [facility]:[place] : 1960 Planned Disposition: Group Home Facility Anticipated Discharge Date: 09/17/18 Discharge Date: Expected LOS: 9 Initial Reviewer: [id number] Initial Review Date: 09/06/2018 Generated: 09/17/18 11:35 am Comments DCP- Discharge Planning Updated by [id number]: Tray Nielsen on 09/17/18 9:[address] Patient Name: FITZ MATAMOROS Encounter No: [id number] : 1960 Primary Insurance: MEDICARE A & B Anticipated DC Date: 09-15-2018 Planned Disposition: Group Home Facility External [facility] DCP follow-up note: CM RECEIVED CALL FROM [facility] COM[facility], , WHO INFORMED CM THAT THEY NOW HAVE EQUIPMENT AND CAN RECEIVE PT TODAY. THEIR TRANSPORT SERVICE [facility] CANNOT HANDLE PT'S WEIGHT AND PT WILL NEED TRANSPORTATION TO FACILITY. CM CALLED MAGUI MATAMOROS, PT'S BROTHER, , LEFT DETAILED MESSAGE ASKING FOR TRANSPORTATION ASSISTANCE FROM FAMILY TO GET PT TO [facility] FOR REHAB. CM CALLED DR. BALDWIN' OFFICE AND LEFT MESSAGE WITH ELOISA FOR DR. MORLEY ASKING FOR UPDATED DISCHARGE AND NOTIFYING OF ACCEPTANCE BY [facility]. CM RECEIVED CALL FROM MAGUI WHO INFORMED CM THAT PT TRANSPORTS VIA [employer] AND MEDICAID PAYS FOR IT. CM WAITING UPDATED DISCHARGE INFORMATION FROM DR. MORLEY. FAX DISCHARGE INFORMATION TO [facility] AT [phone]. NURSE REPORT TO BE CALLED TO [facility] AT [phone]. PT TO TRANSPORT VIA AMBULANCE. PATT Sherman DCP- Discharge Planning Updated by [id number]: Tray Nielsen on 09/14/18 2:[address] Patient Name: FITZ MATAMOROS Encounter No: [id number] : 1960 Primary Insurance: MEDICARE A & B Anticipated DC Date: 09-15-2018 Planned Disposition: Group Home Facility External Planned Provider: [facility], MEDICARE REHAB BED. DCP follow-up note: CM RECEIVED SRIRAM EXEMPTION. CM RECEIVED DENIALS FROM [facility] AND [facility]. CM SPOKE TO NAKUL AT [facility], , WHO WILL ACCEPT PT, THEY WILL ACCEPT 09-15 THEY HAVE TO ORDER SPECIALTY EQUIPMENT PT IS OVER 500 LBS. FACILITY WILL CALL HOSPITAL TOMORROW WHEN READY TO ACCEPT PATIENT. CM PAGED AND SPOKE TO DR. MORLEY, NOTIFIED OF DISCHARGE ARRANGEMENTS FOR TOMORROW, 09-15. CM CALLED AND SPOKE TO MAGUI MATAMOROS, , WHO IS IN AGREEMENT WITH PLAN FOR DISCHARGE TO [facility]. CM SPOKE TO PT WHO IS IN AGREEMENT WITH PLAN. IMPORTANT MESSAGE FROM MEDICARE PROVIDED AND EXPLAINED. CM FAXED UPDATE AND SRIRAM EXEMPTION TO [facility] AT [phone]. [facility] TO CALL HOSPITAL 09-15-18 WHEN READY TO ACCEPT REPORT AND RECEIVE PT. FAX DISCHARGE INFORMATION TO [facility] AT [phone]. NURSE REPORT TO BE CALLED TO [facility] AT [phone]. [facility] TO ARRANGE VAN TRANSPORTATION. Tray Nielsen, CASE MANAGEMENT DCP- Discharge Planning Updated by [id number]: Tray Nielsen on 09/13/18 12:[address] Patient Name: FITZ MATAMOROS Encounter No: [id number] : 1960 Primary Insurance: MEDICARE A & B Anticipated DC Date: 09-11-2018 Planned Disposition: Group Home Facility External Planned Provider: [facility] DCP follow-up note: CM RECEVIED REQUEST FROM [employer] REQUESTING REFAX OF SRIRAM AND DOCUMENTS. CM REFAXED REQUESTED DOCUMENTS TO [facility] AT [phone]. CM RECEIVED DENIALS FROM: [facility], [place], [facility] AND [facility]. CM RECEIVED CALLS FROM [facility] AND [facility] WHO ARE STILL CONSIDERING PT FOR REHAB ADMISSION. CM RECEIVED CALL FROM MAGUI MATAMOROS AND UPDATED ON PROGRESS AND DENIALS SO FAR. CM WAITING COMPLETION OF SRIRAM SCREENING AND DETERMINATION. CM WAITING ADMISSION DETERMINATIONS FOR [facility]HAB [facility]: [facility], [facility], [facility], [place] AND [facility]. Tray Nielsen, CASE MANAGEMENT DCP- Discharge Planning Updated by [id number]: Tray Nielsen on 09/12/18 5:[address] Patient Name: FITZ MATAMOROS Encounter No: [id number] : 1960 Primary Insurance: MEDICARE A & B Anticipated DC Date: 09-11-2018 Planned Disposition: Group Home Facility External Planned Provider: [facility], MEDICARE REHAB BED DCP follow-up note: CM RECEIVED MESSAGE FROM [facility] WHO INFORMED CM THAT [facility] WOULD ACCEPT PT BUT FAMILY DOES NOT WANT PT PLACED IN [facility] REHAB. CM MET WITH PT IN ROOM, CALLED MAGUI VIA PHONE FROM ROOM, . MAGUI INFORMED CM THAT [facility] WAS MISTAKEN, THEY DO WANT SKILLED REHAB, JUST NOT AT [facility] PT'S PAYEE (SISTER IN LAW / JALILELEONORAISIDRO SPOUSE) VISITED [facility] AND FOUND THE FACILITY TO BE UNACCEPTABLE FOR REHAB PLACEMENT. THEY HAVE NO PREFERENCE ON FACILITY IN [place] OR [place]OUNDING AREA WITH EXCEPTION OF [facility] AND REHAB. SRIRAM COMPLETED WITH ASSISTANCE OF PT AND MAGUI. CHOICE LETTER COMPLETED. CM FAXED SRIRAM TO DR. MORLEY'S OFFICE, CALLED AND PROVIDED UPDATE TO ELOISA AT DR. BALDWIN OFFICE AND ASKED TO GET FORMS SIGNED SOON POSSIBLE. CM LATER CALLED DR. MORLEY'S OFFICE, SPOKE DIRECTLY TO AND PROVIDED UPDATE AND ASKED FOR SIGNED FORM RETURN TO COMPLETE SRIRAM SCREENING. CM RECEIVED SRIRAM SCREENING, FAXED TO [facility] AT [phone]. CM FAXED REFERRALS FOR REHAB SCREENINGS TO [facility], [facility], [facility], [place], [facility], [facility], [facility] AND [facility]. CM WAITING COMPLETION OF SRIRAM SCREENING AND DETERMINATION. CM WAITING ADMISSION DETERMINATIONS FOR REHAB FROM: [facility], [facility], [facility], [place], [place], [place], [facility], [facility] AND [facility]. Tray Nielsen, CASE MANAGEMENT DCP- Discharge Planning Updated by [id number]: Tray Nielsen on 09/11/18 4:[address] Patient Name: FITZ MATAMOROS Admission Status: ER Accout number: [id number] Admission Date: 09-08-2018 : 1960 Admission Diagnosis: Attending: CHANCE MORLEY Current LOS: 3 Anticipated DC Date: 09-11-2018 Planned Disposition: Group Home Facility Primary Insurance: MEDICARE A & B PLANNED EXTERNAL PROVIDER: [facility] OR [facility], MEDICARE REHAB BED Discharge Planning Comments: CM RECEIVED CALL FROM MAGUI MATAMOROS, . MAGUI REPORTS BEING PT'S BROTHER, PT LIVES WITH FAMILY AT [facility]. MAGUI REPORTS PT WAS IN [facility]AB [facility]4 WEEKS A[facility] AND NOW CANNOT WALK WELL ENOUGH TO COME HOME. PT NEEDS REHAB TO COME BACK HOME AND HE HAS NO PREFERENCE ON PROVIDER OF REHAB. CM CONTACTED INPATIENT REHAB AT [place] WHO DECLINED PT THEY FEEL THAT PT WILL NOT BE ABLE TO GO BACK HOME AT DISCHARGE. CM MET WITH PT IN ROOM TO DISCUSS DISCHARGE PLANNING AND NEEDS. PT REPORTS SPEAKING TO HIS BROTHER AND IS IN AGREEMENT WITH REHAB ANYWHERE. PT IS LIVING HIS BROTHER'S HOME, REPORTS TO BE INDEPENDENT IN HIS CARE AT HOME. PT USES A WALKER AT HOME AND HAS NO MEDICAL EQUIPMENT PROVIDER PREFERENCE . PT HAS [facility] HAS BEEN SEEING PT AT HOME FOR NURSING AND THERAPY. CM DISCUSSED AVAILABILITY OF HOME HEALTH, REHAB SERVICES AND MEDICAL EQUIPMENT. PT SIGNED CHOICE FOR [facility] OR [employer], REPORTS HIS BROTHER WILL PICK HIM UP FOR DISCHARGE HOME. IMPORTANT MESSAGE FROM MEDICARE PROVIDED AND EXPLAINED. CM NOTIFIED [facility] AND [facility], , OF REFERRAL WITH DISCHARGE ORDER. CM FAXED REFERRAL TO [facility] AT [phone]. CM WAITING ADMISSION DETERMINATIONS FROM THE [facility] AND [facility]. Salvage Mend Worker: Tray Nielsen Appended by Tary Nielsen on 09/11/2018 17:10 LOGISTICS AND PLANNING MANAGER: CM RECEIVED CALL FROM [facility] WHO INFORMED CM THAT PT WILL REQUIRE [facility] ASSESSMENT FOR [facility] ADMISSION DUE TO POSSIBLE MENTAL RETARDATION NOTED IN CHART. CM TO COMPLETE AND SUBMIT FOR [facility] SCREENING SOON POSSIBLE. CM WAITING ADMISSION DETERMINATIONS FROM [facility]. Salvage Mend Worker: Tray Nielsen DCPIA - Discharge Planning Initial Assessment Updated by LORY: Tray Nielsen on 09/17/18 10:29 am * Is the patient Alert and Oriented? Yes * How many steps to enter\exit or inside your home? * PCP DR. PREET DIAMOND * Pharmacy [facility] * Preadmission Environment Home with Family * ADLs Independent * Equipment Walker Wheelchair * Other Equipment NO MEDICAL EQUIPMENT PROVIDER PREFERENCE * List name and contact numbers for known caregivers / representatives who currently or will assist patient after discharge: MAGUI MATAMOROS, BROTHER, * Verbal permission to speak to the caregivers and representatives has been obtained from the patient. Yes * Community resources currently utilized Home Health * Please name any agencies selected above. [facility], * Additional services required to return to the preadmission environment? Yes * Can the patient safely return to the preadmission environment? Yes * Has this patient been hospitalized within the prior 30 days at any hospital? Yes Coverage Notice Reviewer: [id number] Timmy Nielsen Notice Issued Date-Time: 09/14/2018 15:18 Notice Type: IM Discharge Notice Notice Delivered To: Patient Relationship to Patient: Senior Consumer Insights Consultant Name: Delivery Method: HAND - Hand Delivered Yvonne Days: Prior Verbal Notification: Recipient Understood Notice: Yes Recipient Signature: Yes Med Rec Note Co-signed by Attending: Coverage Notice Comment: Reviewer: [id number] Timmy Nielsen Notice Issued Date-Time: 09/11/2018 11:10 Notice Type: IM Discharge Notice Notice Delivered To: Patient Relationship to Patient: Senior Consumer Insights Consultant Name: Delivery Method: HAND - Hand Delivered Yvonne Days: Prior Verbal Notification: Recipient Understood Notice: Yes Recipient Signature: Yes Med Rec Note Co-signed by Attending: Coverage Notice Comment: Reviewer: [id number] Timmy Fournier Notice Issued Date-Time: 09/07/2018 17:47 Notice Type: Medicare Outpatient Observation Notice Notice Delivered To: Patient Relationship to Patient: Self Senior Consumer Insights Consultant Name: Delivery Method: HAND - Hand Delivered Yvonne Days: Prior Verbal Notification: Recipient Understood Notice: Yes Recipient Signature: Yes Med Rec Note Co-signed by Attending: Coverage Notice Comment: Reviewer: [id number] Timmy Nielsen Notice Issued Date-Time: 09/11/2018 11:10 Notice Type: Patient Choice Letter Notice Delivered To: Patient Relationship to Patient: Senior Consumer Insights Consultant Name: Delivery Method: HAND - Hand Delivered Yvonne Days: Prior Verbal Notification: Recipient Understood Notice: Yes Recipient Signature: Yes Med Rec Note Co-signed by Attending: Coverage Notice Comment: [facility] Reviewer: [id number] Timmy Nielsen Notice Issued Date-Time: 09/12/2018 10:00 Notice Type: Patient Choice Letter Notice Delivered To: Family Member Relationship to Patient: Brother Senior Consumer Insights Consultant Name: MAGUI MATAMOROS Delivery Method: PHONE - Phone Yvonne Days: Prior Verbal Notification: Recipient Understood Notice: Yes Recipient Signature: Yes Med Rec Note Co-signed by Attending: Coverage Notice Comment: ALL [facility]. Last DP export: 09/17/18 9:29 Patient Name: FITZ MATAMOROS Page [phone] at 1035 All edits/amendments must be made on the electronic document DICTATION DATE: 09/17/18 1035 CUSTOMER ASSISTANCE REPRESENTATIVE: JUAN LUIS 09/17/18 1035 RPT#: [id number] DC DATE: STATUS: ADM IN [facility] [address] [place] [address] END OF REPORT
--- NOTE | ~2018-09-06 | MORECARE ---
CASE MANAGEMENT DISCHARGE SUMMARY PATIENT: FITZ MATAMOROS UNIT: [id number] ADM DATE: 09/08/18 AGE: 58 : 60 SEX: M ROOM/BED: D.1465 AUTHOR: ARADOC PHYSICIAN: REFERRING PHYSICIAN: CHANCE MORLEY MD DATE OF SERVICE: 09/17/18 Discharge Plan Patient Name: FITZ MATAMOROS Facility: [facility]:[place] : 1960 Planned Disposition: Penitentiary Facility Anticipated Discharge Date: 09/15/18 Discharge Date: Expected LOS: 7 Initial Reviewer: [id number] Initial Review Date: 09/06/2018 Generated: 09/17/18 11:29 am Comments DCP- Discharge Planning Updated by [id number]: Tray Nielsen on 09/17/18 9:[address] Patient Name: FITZ MATAMOROS Encounter No: [id number] : 1960 Primary Insurance: MEDICARE A & B Anticipated DC Date: 09-15-2018 Planned Disposition: Penitentiary Facility External [facility] MED[facility]ARE REHAB BED DCP follow-up note: CM RECEIVED CALL FROM KATE COMER [facility], , WHO INFORMED CM THAT THEY NOW HAVE EQUIPMENT AND CAN RECEIVE PT TODAY. THEIR TRANSPORT SERVICE [facility] CANNOT HANDLE PT'S WEIGHT AND PT WILL NEED TRANSPORTATION TO FACILITY. CM CALLED MAGUI MATAMOROS, PT'S BROTHER, , LEFT DETAILED MESSAGE ASKING FOR TRANSPORTATION ASSISTANCE FROM FAMILY TO GET PT TO [facility] FOR REHAB. CM CALLED DR. BALDWIN' OFFICE AND LEFT MESSAGE WITH ELOISA FOR DR. MORLEY ASKING FOR UPDATED DISCHARGE AND NOTIFYING OF ACCEPTANCE BY [facility]. CM RECEIVED CALL FROM MAGUI WHO INFORMED CM THAT PT TRANSPORTS VIA [facility] AND MEDICAID PAYS FOR IT. CM WAITING UPDATED DISCHARGE INFORMATION FROM DR. MORLEY. FAX DISCHARGE INFORMATION TO [facility] AT [phone]. NURSE REPORT TO BE CALLED TO [facility] AT [phone]. PT TO TRANSPORT VIA AMBULANCE. PATT Sherman DCP- Discharge Planning Updated by [id number]: Tray Nielsen on 09/14/18 2:[address] Patient Name: FITZ MATAMOROS Encounter No: [id number] : 1960 Primary Insurance: MEDICARE A & B Anticipated DC Date: 09-15-2018 Planned Disposition: Penitentiary Facility External Planned Provider: [facility], MEDICARE REHAB BED. DCP follow-up note: CM RECEIVED [facility] EXEMPTION. CM RECEIVED DENIALS FROM [facility]. CM SPOKE TO NAKUL AT [facility], , WHO WILL ACCEPT PT, THEY WILL ACCEPT 09-15 THEY HAVE TO ORDER SPECIALTY EQUIPMENT PT IS OVER 500 LBS. FACILITY WILL CALL HOSPITAL TOMORROW WHEN READY TO ACCEPT PATIENT. CM PAGED AND SPOKE TO DR. MORLEY, NOTIFIED OF DISCHARGE ARRANGEMENTS FOR TOMORROW, 09-15. CM CALLED AND SPOKE TO MAGUI MATAMOROS, , WHO IS IN AGREEMENT WITH PLAN FOR DISCHARGE TO [facility]. CM SPOKE TO PT WHO IS IN AGREEMENT WITH PLAN. IMPORTANT MESSAGE FROM MEDICARE PROVIDED AND EXPLAINED. CM FAXED UPDATE AND SRIRAM EXEMPTION TO [facility] AT [phone]. [facility] TO CALL HOSPITAL 09-15-18 WHEN READY TO ACCEPT REPORT AND RECEIVE PT. FAX DISCHARGE INFORMATION TO [facility] AT [phone]. NURSE REPORT TO BE CALLED TO [facility] AT [phone]. [facility] TO ARRANGE VAN TRANSPORTATION. Tray Nielsen, CASE MANAGEMENT DCP- Discharge Planning Updated by [id number]: Tray Nielsen on 09/13/18 12:[address] Patient Name: FITZ MATAMOROS Encounter No: [id number] : 1960 Primary Insurance: MEDICARE A & B Anticipated DC Date: 09-11-2018 Planned Disposition: Penitentiary Facility External Planned Provider: [facility] DCP follow-up note: CM RECEVIED REQUEST FROM [employer] REQUESTING REFAX OF [facility] AND DOCUMENTS. CM REFAXED REQUESTED DOCUMENTS TO [employer] AT [phone]. CM RECEIVED DENIALS FROM: [facility], [facility], [facility] AND [facility]. CM RECEIVED CALLS FROM [facility] AND [facility] WHO ARE STILL CONSIDERING PT FOR REHAB ADMISSION. CM RECEIVED CALL FROM MAGUI MATAMOROS AND UPDATED ON PROGRESS AND DENIALS SO FAR. CM WAITING COMPLETION OF SRIRAM SCREENING AND DETERMINATION. CM WAITING ADMISSION DETERMINATIONS FOR REHAB [facility]: [facility], [facility], [facility], [facility] AND [facility]. Tray Nielsen, CASE MANAGEMENT DCP- Discharge Planning Updated by [id number]: Tray Nielsen on 09/12/18 5:[address] Patient Name: FITZ MATAMOROS Encounter No: [id number] : 1960 Primary Insurance: MEDICARE A & B Anticipated DC Date: 09-11-2018 Planned Disposition: Penitentiary Facility External Planned Provider: [facility], MEDICARE REHAB BED DCP follow-up note: CM RECEIVED MESSAGE FROM [facility] WHO INFORMED CM THAT [facility] WOULD ACCEPT PT BUT FAMILY DOES NOT WANT PT PLACED IN [facility] FACILITY REHAB. CM MET WITH PT IN ROOM, CALLED MAGUI VIA PHONE FROM ROOM, . MAGUI INFORMED CM THAT [facility] WAS MISTAKEN, THEY DO WANT SKILLED REHAB, JUST NOT AT [facility] PT'S PAYEE (SISTER IN LAW / JALILELEONORAISIDRO SPOUSE) VISITED [facility] AND FOUND THE FACILITY TO BE UNACCEPTABLE FOR REHAB PLACEMENT. THEY HAVE NO PREFERENCE ON FACILITY IN [place] OR [place] WITH EXCEPTION OF [facility] AND REHAB. [facility]AM COMPLETED WITH ASSISTANCE OF PT AND MAGUI. CHOICE LETTER COMPLETED. CM FAXED SRIRAM TO DR. MORLEY'S OFFICE, CALLED AND PROVIDED UPDATE TO ELOISA AT DR. BALDWIN OFFICE AND ASKED TO GET FORMS SIGNED SOON POSSIBLE. CM LATER CALLED DR. MORLEY'S OFFICE, SPOKE DIRECTLY TO AND PROVIDED UPDATE AND ASKED FOR SIGNED FORM RETURN TO COMPLETE [facility]IRAM SCREENING. CM RECEIVED [facility] SCREENING, FAXED TO [facility] AT [phone]. CM FAXED REFERRALS FOR REHAB SCREENINGS TO [facility], [facility], [facility], [facility], [facility], [facility], [facility] AND [facility]. CM WAITING COMPLETION OF [facility]IRAM SCREENING AND DETERMINATION. CM WAITING ADMISSION DETERMINATIONS FOR REHAB FROM: [facility], [facility], [facility], [facility], [facility], [facility], [facility], [facility] AND [facility]. Tray Nielsen, CASE MANAGEMENT DCP- Discharge Planning Updated by [id number]: Tray Nielsen on 09/11/18 4:[address] Patient Name: FITZ MATAMOROS Admission Status: ER Accout number: [id number] Admission Date: 09-08-2018 : 1960 Admission Diagnosis: Attending: CHANCE MORLEY Current LOS: 3 Anticipated DC Date: 09-11-2018 Planned Disposition: Penitentiary Facility Primary Insurance: MEDICARE A & B PLANNED EXTERNAL PROVIDER: [facility] OR [place], MEDICARE REHAB BED Discharge Planning Comments: CM RECEIVED CALL FROM MAGUI MATAMOROS, . MAGUI REPORTS BEING PT'S BROTHER, PT LIVES WITH FAMILY AT [facility]. MAGUI REPORTS PT WAS IN REHAB AT [facility] 3-4 WEEKS AGO AND NOW CANNOT WALK WELL ENOUGH TO COME HOME. PT NEEDS REHAB TO COME BACK HOME AND HE HAS NO PREFERENCE ON PROVIDER OF REHAB. CM CONTACTED INPATIENT REHAB AT [place] WHO DECLINED PT THEY FEEL THAT PT WILL NOT BE ABLE TO GO BACK HOME AT DISCHARGE. CM MET WITH PT IN ROOM TO DISCUSS DISCHARGE PLANNING AND NEEDS. PT REPORTS SPEAKING TO HIS BROTHER AND IS IN AGREEMENT WITH REHAB ANYWHERE. PT IS LIVING HIS BROTHER'S HOME, REPORTS TO BE INDEPENDENT IN HIS CARE AT HOME. PT USES A WALKER AT HOME AND HAS NO MEDICAL EQUIPMENT PROVIDER PREFERENCE . PT HAS [facility] HAS BEEN SEEING PT AT HOME FOR NURSING AND THERAPY. CM DISCUSSED AVAILABILITY OF HOME HEALTH, REHAB SERVICES AND MEDICAL EQUIPMENT. PT SIGNED CHOICE FOR [facility] OR [facility], REPORTS HIS BROTHER WILL PICK HIM UP FOR DISCHARGE HOME. IMPORTANT MESSAGE FROM MEDICARE PROVIDED AND EXPLAINED. CM NOTIFIED [facility] AND [facility], , OF REFERRAL WITH DISCHARGE ORDER. CM FAXED REFERRAL TO [facility] AT [phone]. CM WAITING ADMISSION DETERMINATIONS FROM [facility] AND [facility]. Centrifugal Wax Molder: Tray Nielsen Appended by Tray Nielsen on 09/11/2018 17:10 FIBERGLASS QUALITY TECHNICIAN: CM RECEIVED CALL FROM [facility] WHO INFORMED CM THAT PT WILL REQUIRE [facility] ASSESSMENT FOR [facility] FACILITY ADMISSION DUE TO POSSIBLE MENTAL RETARDATION NOTED IN CHART. CM TO COMPLETE AND SUBMIT FOR [facility] SCREENING SOON POSSIBLE. CM WAITING ADMISSION DETERMINATIONS FROM [facility]. Centrifugal Wax Molder: Tray Nielsen DCPIA - Discharge Planning Initial Assessment Updated by [id number]: Tray Nielsen on 09/17/18 10:29 am * Is the patient Alert and Oriented? Yes * How many steps to enter\exit or inside your home? * PCP DR. PREET DIAMOND * [facility]acy [facility] * Preadmission Environment Home with Family * ADLs Independent * Equipment Walker Wheelchair * Other Equipment NO MEDICAL EQUIPMENT PROVIDER PREFERENCE * List name and contact numbers for known caregivers / representatives who currently or will assist patient after discharge: MAGUI MATAMOROS, BROTHER, * Verbal permission to speak to the caregivers and representatives has been obtained from the patient. Yes * Community resources currently utilized Home Health * Please name any agencies selected above. [facility], * Additional services required to return to the preadmission environment? Yes * Can the patient safely return to the preadmission environment? Yes * Has this patient been hospitalized within the prior 30 days at any hospital? Yes Coverage Notice Reviewer: [id number] Timmy Fournier Notice Issued Date-Time: 09/07/2018 17:47 Notice Type: Medicare Outpatient Observation Notice Notice Delivered To: Patient Relationship to Patient: Self Fabric Worker Name: Delivery Method: HAND - Hand Delivered Yvonne Days: Prior Verbal Notification: Recipient Understood Notice: Yes Recipient Signature: Yes Med Rec Note Co-signed by Attending: Coverage Notice Comment: Reviewer: [id number] Timmy Nielsen Notice Issued Date-Time: 09/11/2018 11:10 Notice Type: IM Discharge Notice Notice Delivered To: Patient Relationship to Patient: Fabric Worker Name: Delivery Method: HAND - Hand Delivered Yvonne Days: Prior Verbal Notification: Recipient Understood Notice: Yes Recipient Signature: Yes Med Rec Note Co-signed by Attending: Coverage Notice Comment: Reviewer: [id number] Timmy Nielsen Notice Issued Date-Time: 09/11/2018 11:10 Notice Type: Patient Choice Letter Notice Delivered To: Patient Relationship to Patient: Fabric Worker Name: Delivery Method: HAND - Hand Delivered Yvonne Days: Prior Verbal Notification: Recipient Understood Notice: Yes Recipient Signature: Yes Med Rec Note Co-signed by Attending: Coverage Notice Comment: [facility] OR [facility] SN[facility] REHAB Reviewer: [id number] Timmy Nielsen Notice Issued Date-Time: 09/12/2018 10:00 Notice Type: Patient Choice Letter Notice Delivered To: Family Member Relationship to Patient: Brother Fabric Worker Name: MAGUI MATAMOROS Delivery Method: PHONE - Phone Yvonne Days: Prior Verbal Notification: Recipient Understood Notice: Yes Recipient Signature: Yes Med Rec Note Co-signed by Attending: Coverage Notice Comment: ALL SN[facility] REHABS [facility]CEPT [facility] Reviewer: [id number] Timmy Nielsen Notice Issued Date-Time: 09/14/2018 15:18 Notice Type: IM Discharge Notice Notice Delivered To: Patient Relationship to Patient: Fabric Worker Name: Delivery Method: HAND - Hand Delivered Yvonne Days: Prior Verbal Notification: Recipient Understood Notice: Yes Recipient Signature: Yes Med Rec Note Co-signed by Attending: Coverage Notice Comment: Last DP export: 09/14/18 2:37 Patient Name: FITZ MATAMOROS Page [id number] at 1029 All edits/amendments must be made on the electronic document DICTATION DATE: 09/17/18 1028 ARTIFICIAL BREEDING DISTRIBUTOR: JUAN LUIS 09/17/18 1028 RPT#: [id number] DC DATE: STATUS: ADM IN [facility] [address] [place] [address] END OF REPORT
--- NOTE | ~2018-09-06 | MORECARE ---
CASE MANAGEMENT DISCHARGE SUMMARY PATIENT: FITZ MATAMOROS UNIT: [id number] ADM DATE: 09/08/18 AGE: 58 : 60 SEX: M ROOM/BED: D.0605 AUTHOR: [facility]ADOC PHYSICIAN: REFERRING PHYSICIAN: CHANCE MORLEY MD DATE OF SERVICE: 09/17/18 Discharge Plan Patient Name: FITZ MATAMOROS Facility: [facility]:[place] : 1960 Planned Disposition: Intermediate Facility Anticipated Discharge Date: 09/17/18 Discharge Date: Expected LOS: 9 Initial Reviewer: [id number] Initial Review Date: 09/06/2018 Generated: 09/17/18 12:34 pm Comments DCP- Discharge Planning Updated by LORY: Tray Nielsen on 09/17/18 9:[address] Patient Name: FITZ MATAMOROS Encounter No: [id number] : 1960 Primary Insurance: MEDICARE A & B Anticipated DC Date: 09-15-2018 Planned Disposition: Intermediate Facility External [facility] MEDICARE REHAB BED DCP follow-up note: CM RECEIVED CALL FROM KATE COM[facility], , WHO INFORMED CM THAT THEY NOW HAVE EQUIPMENT AND CAN RECEIVE PT TODAY. THEIR TRANSPORT SERVICE [facility] CANNOT HANDLE PT'S WEIGHT AND PT WILL NEED TRANSPORTATION TO FACILITY. CM CALLED MAGUI MATAMOROS, PT'S BROTHER, , LEFT DETAILED MESSAGE ASKING FOR TRANSPORTATION ASSISTANCE FROM FAMILY TO GET PT TO [facility] FOR REHAB. CM CALLED DR. BALDWIN' OFFICE AND LEFT MESSAGE WITH ELOISA FOR DR. MORLEY ASKING FOR UPDATED DISCHARGE AND NOTIFYING OF ACCEPTANCE BY [facility]. CM RECEIVED CALL FROM MAGUI WHO INFORMED CM THAT PT TRANSPORTS VIA [employer] AND MEDICAID PAYS FOR IT. CM WAITING UPDATED DISCHARGE INFORMATION FROM DR. MORLEY. FAX DISCHARGE INFORMATION TO [facility] AT [phone]. NURSE REPORT TO BE CALLED TO [facility] AT [phone]. PT TO TRANSPORT VIA AMBULANCE. PATT Sherman DCP- Discharge Planning Updated by [id number]: Tray Nielsen on 09/14/18 2:[address] Patient Name: FITZ MATAMOROS Encounter No: [id number] : 1960 Primary Insurance: MEDICARE A & B Anticipated DC Date: 09-15-2018 Planned Disposition: Intermediate Facility External Planned Provider: [facility], MEDICARE REHAB BED. DCP follow-up note: CM RECEIVED [facility] EXEMPTION. CM RECEIVED DENIALS FROM [facility] AND [facility]. CM SPOKE TO NAKUL AT [facility], , WHO WILL ACCEPT PT, THEY WILL ACCEPT 09-15 THEY HAVE TO ORDER SPECIALTY EQUIPMENT PT IS OVER 500 LBS. FACILITY WILL CALL HOSPITAL TOMORROW WHEN READY TO ACCEPT PATIENT. CM PAGED AND SPOKE TO DR. MORLEY, NOTIFIED OF DISCHARGE ARRANGEMENTS FOR TOMORROW, 09-15. CM CALLED AND SPOKE TO MAGUI MATAMOROS, , WHO IS IN AGREEMENT WITH PLAN FOR DISCHARGE TO [facility]. CM SPOKE TO PT WHO IS IN AGREEMENT WITH PLAN. IMPORTANT MESSAGE FROM MEDICARE PROVIDED AND EXPLAINED. CM FAXED UPDATE AND SRIRAM EXEMPTION TO [facility] AT [phone]. [facility] TO CALL HOSPITAL 09-15-18 WHEN READY TO ACCEPT REPORT AND RECEIVE PT. FAX DISCHARGE INFORMATION TO [facility] AT [phone]. NURSE REPORT TO BE CALLED TO [facility] AT [phone]. [facility] TO ARRANGE VAN TRANSPORTATION. Tray Nielsen, CASE MANAGEMENT DCP- Discharge Planning Updated by [id number]: Tray Nielsen on 09/13/18 12:[address] Patient Name: FITZ MATAMOROS Encounter No: [id number] : 1960 Primary Insurance: MEDICARE A & B Anticipated DC Date: 09-11-2018 Planned Disposition: Intermediate Facility External Planned Provider: [facility] DCP follow-up note: CM RECEVIED REQUEST FROM [employer] REQUESTING REFAX OF [facility] AND DOCUMENTS. CM REFAXED REQUESTED DOCUMENTS TO [employer] AT [phone]. CM RECEIVED DENIALS FROM: [facility], [facility], [facility] AND [facility]. CM RECEIVED CALLS FROM [facility] AND [facility] WHO ARE STILL CONSIDERING PT FOR REHAB ADMISSION. CM RECEIVED CALL FROM MAGUI MATAMOROS AND UPDATED ON PROGRESS AND DENIALS SO FAR. CM WAITING COMPLETION OF SRIRAM SCREENING AND DETERMINATION. CM WAITING ADMISS[facility]ERMINATIONS [facility]AB [facility], [facility], [facility], [facility] AND [facility]. Tray Nielsen, CASE MANAGEMENT DCP- Discharge Planning Updated by [id number]: Tray Nielsen on 09/12/18 5:[address] Patient Name: FITZ MATAMOROS Encounter No: [id number] : 1960 Primary Insurance: MEDICARE A & B Anticipated DC Date: 09-11-2018 Planned Disposition: Intermediate Facility External Planned Provider: [facility], MEDICARE REHAB BED DCP follow-up note: CM RECEIVED MESSAGE FROM [facility] WHO INFORMED CM THAT [facility] WOULD ACCEPT PT BUT FAMILY DOES NOT WANT PT PLACED IN ASSISTED FACILITY REHAB. CM MET WITH PT IN ROOM, CALLED MAGUI VIA PHONE FROM ROOM, . MAGUI INFORMED CM THAT [facility] WAS MISTAKEN, THEY DO WANT SKILLED REHAB, JUST NOT AT [facility] PT'S PAYEE (SISTER IN LAW / JALILELEONORAISIDRO SPOUSE) VISITED [facility] AND FOUND THE FACILITY TO BE UNACCEPTABLE FOR REHAB PLACEMENT. THEY HAVE NO PREFERENCE ON FACILITY IN [place] OR [place] WITH EXCEPTION OF [facility]. [facility] COMPLETED WITH ASSISTANCE OF PT AND MAGUI. CHOICE LETTER COMPLETED. CM FAXED SRIRAM TO DR. MORLEY'S OFFICE, CALLED AND PROVIDED UPDATE TO ELOISA AT DR. BALDWIN OFFICE AND ASKED TO GET FORMS SIGNED SOON POSSIBLE. CM LATER CALLED DR. MORLEY'S OFFICE, SPOKE DIRECTLY TO AND PROVIDED UPDATE AND ASKED FOR SIGNED FORM RETURN TO COMPLETE SRIRAM SCREENING. CM RECEIVED [facility] SCREENING, FAXED TO [facility] AT [phone]. CM FAXED REFERRALS FOR REHAB SCREENINGS TO [facility], [facility], [facility], [facility], [facility], [facility], [facility] AND [facility]. CM WAITING COMPLETION OF [facility]IRAM SCREENING AND DETERMINATION. CM WAITING ADMISSION DETERMINATIONS FOR REHAB FROM: [facility], [facility], [facility], [facility], [facility], [facility], [facility], [facility] AND [facility]. Tray Nielsen, CASE MANAGEMENT DCP- Discharge Planning Updated by [id number]: Tray Nielsen on 09/11/18 4:[address] Patient Name: FITZ MATAMOROS Admission Status: ER Accout number: [id number] Admission Date: 09-08-2018 : 1960 Admission Diagnosis: Attending: CHANCE MORLEY Current LOS: 3 Anticipated DC Date: 09-11-2018 Planned Disposition: Intermediate Facility Primary Insurance: MEDICARE A & B PLANNED EXTERNAL PROVIDER: [facility] OR [place], MEDICARE REHAB BED Discharge Planning Comments: CM RECEIVED CALL FROM MAGUI MATAMOROS, . MAGUI REPORTS BEING PT'S BROTHER, PT LIVES WITH FAMILY AT [facility]. MAGUI REPORTS PT WAS IN REHAB AT [facility] 3-4 WEEKS AGO AND NOW CANNOT WALK WELL ENOUGH TO COME HOME. PT NEEDS REHAB TO COME BACK HOME AND HE HAS NO PREFERENCE ON PROVIDER OF REHAB. CM CONTACTED INPATIENT REHAB AT [place] WHO DECLINED PT THEY FEEL THAT PT WILL NOT BE ABLE TO GO BACK HOME AT DISCHARGE. CM MET WITH PT IN ROOM TO DISCUSS DISCHARGE PLANNING AND NEEDS. PT REPORTS SPEAKING TO HIS BROTHER AND IS IN AGREEMENT WITH REHAB ANYWHERE. PT IS LIVING HIS BROTHER'S HOME, REPORTS TO BE INDEPENDENT IN HIS CARE AT HOME. PT USES A WALKER AT HOME AND HAS NO MEDICAL EQUIPMENT PROVIDER PREFERENCE . PT HAS [facility] HAS BEEN SEEING PT AT HOME FOR NURSING AND THERAPY. CM DISCUSSED AVAILABILITY OF HOME HEALTH, REHAB SERVICES AND MEDICAL EQUIPMENT. PT SIGNED CHOICE FOR [facility] OR [facility], REPORTS HIS BROTHER WILL PICK HIM UP FOR DISCHARGE HOME. IMPORTANT MESSAGE FROM MEDICARE PROVIDED AND EXPLAINED. CM NOTIFIED [facility] AND [facility], , OF REFERRAL WITH DISCHARGE ORDER. CM FAXED REFERRAL TO [facility] AT [phone]. CM WAITING ADMISSION DETERMINATIONS FROM [facility] AND [facility]. Medical Clerical Assistant: Tray Nielsen Appended by Tray Nielsen on 09/11/2018 17:10 POSTIE: CM RECEIVED CALL FROM [facility] WHO INFORMED CM THAT PT WILL REQUIRE [facility] ASSESSMENT FOR ASSISTED FACILITY ADMISSION DUE TO POSSIBLE MENTAL RETARDATION NOTED IN CHART. CM TO COMPLETE AND SUBMIT FOR [facility] SCREENING SOON POSSIBLE. CM WAITING ADMISSION DETERMINATIONS FROM THE [facility]. Medical Clerical Assistant: Tray Nielsen DCPIA - Discharge Planning Initial Assessment Updated by LORY: Tray Nielsen on 09/17/18 10:29 am * Is the patient Alert and Oriented? Yes * How many steps to enter\exit or inside your home? * PCP DR. PREET DIAMOND * [facility]acy [facility] * Preadmission Environment Home with Family * ADLs Independent * Equipment Walker Wheelchair * Other Equipment NO MEDICAL EQUIPMENT PROVIDER PREFERENCE * List name and contact numbers for known caregivers / representatives who currently or will assist patient after discharge: MAGUI MATAMOROS, BROTHER, * Verbal permission to speak to the caregivers and representatives has been obtained from the patient. Yes * Community resources currently utilized Home Health * Please name any agencies selected above. [facility], * Additional services required to return to the preadmission environment? Yes * Can the patient safely return to the preadmission environment? Yes * Has this patient been hospitalized within the prior 30 days at any hospital? Yes Coverage Notice Reviewer: [id number] Timmy Nielsen Notice Issued Date-Time: 09/14/2018 15:18 Notice Type: IM Discharge Notice Notice Delivered To: Patient Relationship to Patient: Boring Mill Operator Name: Delivery Method: HAND - Hand Delivered Yvonne Days: Prior Verbal Notification: Recipient Understood Notice: Yes Recipient Signature: Yes Med Rec Note Co-signed by Attending: Coverage Notice Comment: Reviewer: [id number] Timmy Nielsen Notice Issued Date-Time: 09/11/2018 11:10 Notice Type: IM Discharge Notice Notice Delivered To: Patient Relationship to Patient: Boring Mill Operator Name: Delivery Method: HAND - Hand Delivered Yvonne Days: Prior Verbal Notification: Recipient Understood Notice: Yes Recipient Signature: Yes Med Rec Note Co-signed by Attending: Coverage Notice Comment: Reviewer: [id number] Timmy Fournier Notice Issued Date-Time: 09/07/2018 17:47 Notice Type: Medicare Outpatient Observation Notice Notice Delivered To: Patient Relationship to Patient: Self Boring Mill Operator Name: Delivery Method: HAND - Hand Delivered Yvonne Days: Prior Verbal Notification: Recipient Understood Notice: Yes Recipient Signature: Yes Med Rec Note Co-signed by Attending: Coverage Notice Comment: Reviewer: [id number] Timmy Nielsen Notice Issued Date-Time: 09/11/2018 11:10 Notice Type: Patient Choice Letter Notice Delivered To: Patient Relationship to Patient: Boring Mill Operator Name: Delivery Method: HAND - Hand Delivered Yvonne Days: Prior Verbal Notification: Recipient Understood Notice: Yes Recipient Signature: Yes Med Rec Note Co-signed by Attending: Coverage Notice Comment: [facility] Reviewer: [id number] Timmy Nielsen Notice Issued Date-Time: 09/12/2018 10:00 Notice Type: Patient Choice Letter Notice Delivered To: Family Member Relationship to Patient: Brother Boring Mill Operator Name: MAGUI MATAMOROS Delivery Method: PHONE - Phone Yvonne Days: Prior Verbal Notification: Recipient Understood Notice: Yes Recipient Signature: Yes Med Rec Note Co-signed by Attending: Coverage Notice Comment: [facility] [place] [place]. Last DP export: 09/17/18 9:35 Patient Name: FITZ MATAMOROS Page [phone] at 1134 All edits/amendments must be made on the electronic document DICTATION DATE: 09/17/18 1134 INFORMATION MANAGEMENT SPECIALIST: JUAN LUIS 09/17/18 1134 RPT#: [id number] DC DATE: STATUS: ADM IN [facility] [address] [facility] [place] [address] END OF REPORT
--- NOTE | ~2018-09-06 | MORECARE ---
CASE MANAGEMENT DISCHARGE SUMMARY PATIENT: FITZ MATAMOROS UNIT: [id number] ADM DATE: 09/08/18 AGE: 58 : 60 SEX: M ROOM/BED: D.0182 AUTHOR: ARA,DOC PHYSICIAN: REFERRING PHYSICIAN: CHANCE MORLEY MD DATE OF SERVICE: 09/17/18 Discharge Plan Patient Name: FITZ MATAMOROS Facility: [facility]:[place] : 1960 Planned Disposition: Group Home Facility Anticipated Discharge Date: 09/17/18 Discharge Date: Expected LOS: 9 Initial Reviewer: [id number] Initial Review Date: 09/06/2018 Generated: 09/17/18 12:49 pm Comments DCP- Discharge Planning Updated by LORY: Tray Nielsen on 09/17/18 10:[address] Patient Name: FITZ MATAMOROS Encounter No: [id number] : 1960 Primary Insurance: MEDICARE A & B Anticipated DC Date: 09-15-2018 Planned Disposition: Group Home Facility External [facility]ARE REHAB BED DCP follow-up note: CM RECEIVED CALL FROM [facility], , WHO INFORMED CM THAT THEY NOW HAVE EQUIPMENT AND CAN RECEIVE PT TODAY. THEIR TRANSPORT SERVICE [facility] CANNOT HANDLE PT'S WEIGHT AND PT WILL NEED TRANSPORTATION TO FACILITY. CM CALLED MAGUI MATAMOROS, PT'S BROTHER, , LEFT DETAILED MESSAGE ASKING FOR TRANSPORTATION ASSISTANCE FROM FAMILY TO GET PT TO [facility] FOR REHAB. CM CALLED DR. BALDWIN' OFFICE AND LEFT MESSAGE WITH ELOISA FOR DR. MORLEY ASKING FOR UPDATED DISCHARGE AND NOTIFYING OF ACCEPTANCE BY [facility]. CM RECEIVED CALL FROM MAGUI WHO INFORMED CM THAT PT TRANSPORTS VIA [employer] AND MEDICAID PAYS FOR IT. CM WAITING UPDATED DISCHARGE INFORMATION FROM DR. MORLEY. FAX DISCHARGE INFORMATION TO [facility] AT [phone]. NURSE REPORT TO BE CALLED TO [facility] AT [phone]. PT TO TRANSPORT VIA AMBULANCE. Tray Nielsen, CASE MANAGEMENT Appended by Tray Nieslen on 09/17/2018 11:43 SENIOR WINDOWS ADMINISTRATOR: CM RECEIVED UPDATED DISCHARGE INFORMATION,. FAXED DISCHARGE INFORMATION TO [facility] AT [phone]. CM SPOKE TO PT IN ROOM WHO IS AGREEABLE WITH DISCHARGE TO REHAB TODAY AT [facility]. PT CONFIRMED THAT HE GOES TO THE DOCTOR AND HOME VIA AMBULANCE. IMPORTANT MESSAGE FROM MEDICARE PROVIDED AND EXPLAINED. NURSE REPORT TO BE CALLED TO [facility] AT [phone]. PT TO TRANSPORT VIA AMBULANCE. PATT Sherman DCP- Discharge Planning Updated by [id number]: Tray Nielsen on 09/14/18 2:[address] Patient Name: FITZ MATAMOROS Encounter No: [id number] : 1960 Primary Insurance: MEDICARE A & B Anticipated DC Date: 09-15-2018 Planned Disposition: Group Home Facility External Planned Provider: [facility], MEDICARE REHAB BED. DCP follow-up note: CM RECEIVED [facility] EXEMPTION. CM RECEIVED DENIALS FROM [facility] AND [facility]. CM SPOKE TO [facility] AT [facility], , WHO WILL ACCEPT PT, THEY WILL ACCEPT 09-15 THEY HAVE TO ORDER SPECIALTY EQUIPMENT PT IS OVER 500 LBS. FACILITY WILL CALL HOSPITAL TOMORROW WHEN READY TO ACCEPT PATIENT. CM PAGED AND SPOKE TO DR. MORLEY, NOTIFIED OF DISCHARGE ARRANGEMENTS FOR TOMORROW, 09-15. CM CALLED AND SPOKE TO MAGUI MATAMOROS, , WHO IS IN AGREEMENT WITH PLAN FOR DISCHARGE TO [facility]. CM SPOKE TO PT WHO IS IN AGREEMENT WITH PLAN. IMPORTANT MESSAGE FROM MEDICARE PROVIDED AND EXPLAINED. CM FAXED UPDATE AND [facility] EXEMPTION TO [facility] AT [phone]. [facility] TO CALL HOSPITAL 09-15-18 WHEN READY TO ACCEPT REPORT AND RECEIVE PT. FAX DISCHARGE INFORMATION TO [facility] AT [phone]. NURSE REPORT TO BE CALLED TO [facility] AT [phone]. [facility] TO ARRANGE VAN TRANSPORTATION. PATT Sherman DCP- Discharge Planning Updated by [id number]: Tray Nielsen on 09/13/18 12:[address] Patient Name: FITZ MATAMOROS Encounter No: [id number] : 1960 Primary Insurance: MEDICARE A & B Anticipated DC Date: 09-11-2018 Planned Disposition: Group Home Facility External Planned Provider: [facility] DCP follow-up note: CM RECEVIED REQUEST FROM [facility] REQUESTING REFAX OF [facility] AND DOCUMENTS. CM REFAXED REQUESTED DOCUMENTS TO [facility] AT [phone]. CM RECEIVED DENIALS FROM: [facility], [facility], [facility] AND [facility]. CM RECEIVED CALLS FROM [facility] AND [facility] WHO ARE STILL CONSIDERING PT FOR REHAB ADMISSION. CM RECEIVED CALL FROM MAGUI MATAMOROS AND UPDATED ON PROGRESS AND DENIALS SO FAR. CM WAITING COMPLETION OF [facility] SCREENING AND DETERMINATION. CM WAITING ADMISSION DETERMINATIONS FOR REHAB FROM: [facility], [facility], [facility], [facility], [facility], [facility] AND [facility]. Tray Nielsen, CASE MANAGEMENT DCP- Discharge Planning Updated by [id number]: Tray Nielsen on 09/12/18 5:[address] Patient Name: FITZ MATAMOROS Encounter No: [id number] : 1960 Primary Insurance: MEDICARE A & B Anticipated DC Date: 09-11-2018 Planned Disposition: Group Home Facility External Planned Provider: [facility], MEDICARE REHAB BED DCP follow-up note: CM RECEIVED MESSAGE FROM [facility] WHO INFORMED CM THAT [facility] WOULD ACCEPT PT BUT FAMILY DOES NOT WANT PT PLACED IN CUSTODIAL FACILITY REHAB. CM MET WITH PT IN ROOM, CALLED MAGUI VIA PHONE FROM ROOM, . MAGUI INFORMED CM THAT [facility] WAS MISTAKEN, THEY DO WANT SKILLED REHAB, JUST NOT AT [facility] PT'S PAYEE (SISTER IN LAW / TARIK SPOUSE) VISITED [facility] AND FOUND THE FACILITY TO BE UNACCEPTABLE FOR REHAB PLACEMENT. THEY HAVE NO PREFERENCE ON FACILITY IN [place] OR [place] WITH EXCEPTION OF [facility] AND REH[facility]. [facility] COMPLETED WITH ASSISTANCE OF PT AND MAGUI. CHOICE LETTER COMPLETED. CM FAXED SRIRAM TO DR. MORLEY'S OFFICE, CALLED AND PROVIDED UPDATE TO ELOISA AT DR. BALDWIN OFFICE AND ASKED TO GET FORMS SIGNED SOON POSSIBLE. CM LATER CALLED DR. MORLEY'S OFFICE, SPOKE DIRECTLY TO AND PROVIDED UPDATE AND ASKED FOR SIGNED FORM RETURN TO COMPLETE [facility] SCREENING. CM RECEIVED [facility] SCREENING, FAXED TO [facility] AT [phone]. CM FAXED REFERRALS FOR [facility]HAB [facility]CREENINGS [facility], [facility], [facility], [facility], [facility], [facility], [facility]. CM WAITING COMPLETION OF [facility] SCREENING AND DETERMINATION. CM WAITING ADMISSION DETERMINATIONS FOR REHAB FROM: [facility] [place], [facility], [place], [facility], [facility], [facility], [facility]. Tray Nielsen, CASE MANAGEMENT DCP- Discharge Planning Updated by [id number]: Tray Nielsen on 09/11/18 4:[address] Patient Name: FITZ MATAMOROS Admission Status: ER Accout number: [id number] Admission Date: 09-08-2018 : 1960 Admission Diagnosis: Attending: CHANCE MORLEY Current LOS: 3 Anticipated DC Date: 09-11-2018 Planned Disposition: Group Home Facility Primary Insurance: MEDICARE A & B PLANNED EXTERNAL PROVIDER: [facility] OR [place], MEDICARE REHAB BED Discharge Planning Comments: CM RECEIVED CALL FROM MAGUI MATAMOROS, . MAGUI REPORTS BEING PT'S BROTHER, PT LIVES WITH FAMILY AT [facility]. MAGUI REPORTS PT WAS IN REHAB AT [facility] 3-4 WEEKS AGO AND NOW CANNOT WALK WELL ENOUGH TO COME HOME. PT NEEDS REHAB TO COME BACK HOME AND HE HAS NO PREFERENCE ON PROVIDER OF REHAB. CM CONTACTED INPATIENT REHAB AT [place] WHO DECLINED PT THEY FEEL THAT PT WILL NOT BE ABLE TO GO BACK HOME AT DISCHARGE. CM MET WITH PT IN ROOM TO DISCUSS DISCHARGE PLANNING AND NEEDS. PT REPORTS SPEAKING TO HIS BROTHER AND IS IN AGREEMENT WITH REHAB ANYWHERE. PT IS LIVING HIS BROTHER'S HOME, REPORTS TO BE INDEPENDENT IN HIS CARE AT HOME. PT USES A WALKER AT HOME AND HAS NO MEDICAL EQUIPMENT PROVIDER PREFERENCE . PT HAS [facility] HAS BEEN SEEING PT AT HOME FOR NURSING AND THERAPY. CM DISCUSSED AVAILABILITY OF HOME HEALTH, REHAB SERVICES AND MEDICAL EQUIPMENT. PT SIGNED CHOICE FOR [facility] [place], REPORTS HIS BROTHER WILL PICK HIM UP FOR DISCHARGE HOME. IMPORTANT MESSAGE FROM MEDICARE PROVIDED AND EXPLAINED. CM NOTIFIED [facility] AND [facility], , OF REFERRAL WITH DISCHARGE ORDER. CM FAXED REFERRAL TO [facility] AT [phone]. CM WAITING ADMISSION DETERMINATIONS FROM THE [facility]. Reading Instructor: Tray Nielsen Appended by Tray Nielsen on 09/11/2018 17:10 SENIOR WINDOWS ADMINISTRATOR: CM RECEIVED CALL FROM [facility] WHO INFORMED CM THAT PT WILL REQUIRE [facility] ASSESSMENT FOR CUSTODIAL FACILITY ADMISSION DUE TO POSSIBLE MENTAL RETARDATION NOTED IN CHART. CM TO COMPLETE AND SUBMIT FOR [facility] SCREENING SOON POSSIBLE. CM WAITING ADMISSION DETERMINATIONS FROM THE [facility]. Reading Instructor: Tray Nielsen DCPIA - Discharge Planning Initial Assessment Updated by [id number]: Tray Nielsen on 09/17/18 10:29 am * Is the patient Alert and Oriented? Yes * How many steps to enter\exit or inside your home? * PCP DR. PREET DIAMOND * Pharmacy [facility] * Preadmission Environment Home with Family * ADLs Independent * Equipment Walker Wheelchair * Other Equipment NO MEDICAL EQUIPMENT PROVIDER PREFERENCE * List name and contact numbers for known caregivers / representatives who currently or will assist patient after discharge: MAGUI MATAMOROS, BROTHER, * Verbal permission to speak to the caregivers and representatives has been obtained from the patient. Yes * Community resources currently utilized Home Health * Please name any agencies selected above. [facility], * Additional services required to return to the preadmission environment? Yes * Can the patient safely return to the preadmission environment? Yes * Has this patient been hospitalized within the prior 30 days at any hospital? Yes Coverage Notice Reviewer: [id number] Timmy Nielsen Notice Issued Date-Time: 09/17/2018 11:15 Notice Type: IM Discharge Notice Notice Delivered To: Patient Relationship to Patient: Rn Assessment Name: Delivery Method: HAND - Hand Delivered Yvonne Days: Prior Verbal Notification: Recipient Understood Notice: Yes Recipient Signature: Yes Med Rec Note Co-signed by Attending: Coverage Notice Comment: Reviewer: [id number] Nielsen Notice Issued Date-Time: 09/14/2018 15:18 Notice Type: IM Discharge Notice Notice Delivered To: Patient Relationship to Patient: Rn Assessment Name: Delivery Method: HAND - Hand Delivered Yvonne Days: Prior Verbal Notification: Recipient Understood Notice: Yes Recipient Signature: Yes Med Rec Note Co-signed by Attending: Coverage Notice Comment: Reviewer: [id number] Nielsen Notice Issued Date-Time: 09/11/2018 11:10 Notice Type: IM Discharge Notice Notice Delivered To: Patient Relationship to Patient: Rn Assessment Name: Delivery Method: HAND - Hand Delivered Yvonne Days: Prior Verbal Notification: Recipient Understood Notice: Yes Recipient Signature: Yes Med Rec Note Co-signed by Attending: Coverage Notice Comment: Reviewer: [id number] Timmy Fournier Notice Issued Date-Time: 09/07/2018 17:47 Notice Type: Medicare Outpatient Observation Notice Notice Delivered To: Patient Relationship to Patient: Self Rn Assessment Name: Delivery Method: HAND - Hand Delivered Yvonne Days: Prior Verbal Notification: Recipient Understood Notice: Yes Recipient Signature: Yes Med Rec Note Co-signed by Attending: Coverage Notice Comment: Reviewer: LORY Nielsen Notice Issued Date-Time: 09/11/2018 11:10 Notice Type: Patient Choice Letter Notice Delivered To: Patient Relationship to Patient: Rn Assessment Name: Delivery Method: HAND - Hand Delivered Yvonne Days: Prior Verbal Notification: Recipient Understood Notice: Yes Recipient Signature: Yes Med Rec Note Co-signed by Attending: Coverage Notice Comment: [facility] Reviewer: [id number] Nielsen Notice Issued Date-Time: 09/12/2018 10:00 Notice Type: Patient Choice Letter Notice Delivered To: Family Member Relationship to Patient: Brother Rn Assessment Name: MAGUI MATAMOROS Delivery Method: PHONE - Phone Yvonne Days: Prior Verbal Notification: Recipient Understood Notice: Yes Recipient Signature: Yes Med Rec Note Co-signed by Attending: Coverage Notice Comment: ALL SNF REHABS EXCEPT [facility] [place]. Last DP export: 09/17/18 10:34 Patient Name: FITZ MATAMOROS Page [id number] at 1149 All edits/amendments must be made on the electronic document DICTATION DATE: 09/17/18 1149 DUMPER OPERATOR: JUAN LUIS 09/17/18 1149 RPT#: [id number] DC DATE: STATUS: ADM IN [facility] [address] [place] [address] END OF REPORT
--- NOTE | ~2018-09-06 | MORECARE ---
CASE MANAGEMENT DISCHARGE SUMMARY PATIENT: FITZ MATAMOROS UNIT: [id number] ADM DATE: 09/08/18 AGE: 58 : 60 SEX: M ROOM/BED: D.7359 AUTHOR: ARA,DOC PHYSICIAN: REFERRING PHYSICIAN: CHANCE MORLEY MD DATE OF SERVICE: 09/11/18 Discharge Plan Patient Name: FITZ MATAMOROS [facility] [facility] 1960 Planned Disposition: Detention Facility Anticipated Discharge Date: 09/11/18 Discharge Date: Expected LOS: 3 Initial Reviewer: [id number] Initial Review Date: 09/06/2018 Generated: 09/11/18 6:17 pm Comments DCP- Discharge Planning Updated by [id number]: Tray Nielsen on 09/11/18 4:[address] Patient Name: FIZT MATAMOROS Admission Status: ER Accout number: [id number] Admission Date: 09-08-2018 : 1960 Admission Diagnosis: Attending: CHANCE MORLEY Current LOS: 3 Anticipated DC Date: 09-11-2018 Planned Disposition: Detention Facility Primary Insurance: MEDICARE A & B PLANNED EXTERNAL PROVIDER: [facility] OR [facility], MEDICARE REHAB BED Discharge Planning Comments: CM RECEIVED CALL FROM MAGUI SHILOH, . MAGUI REPORTS BEING PT'S BROTHER, PT LIVES WITH FAMILY AT [facility]. MAGUI REPORTS PT WAS IN REHAB AT [facility] 3-4 WEEKS AGO AND NOW CANNOT WALK WELL ENOUGH TO COME HOME. PT NEEDS REHAB TO COME BACK HOME AND HE HAS NO PREFERENCE ON PROVIDER OF REHAB. CM CONTACTED INPATIENT REHAB AT [place] WHO DECLINED PT THEY FEEL THAT PT WILL NOT BE ABLE TO GO BACK HOME AT DISCHARGE. CM MET WITH PT IN ROOM TO DISCUSS DISCHARGE PLANNING AND NEEDS. PT REPORTS SPEAKING TO HIS BROTHER AND IS IN AGREEMENT WITH REHAB ANYWHERE. PT IS LIVING HIS BROTHER'S HOME, REPORTS TO BE INDEPENDENT IN HIS CARE AT HOME. PT USES A WALKER AT HOME AND HAS NO MEDICAL EQUIPMENT PROVIDER PREFERENCE . PT HAS [facility] HAS BEEN SEEING PT AT HOME FOR NURSING AND THERAPY. CM DISCUSSED AVAILABILITY OF HOME HEALTH, REHAB SERVICES AND MEDICAL EQUIPMENT. PT SIGNED CHOICE FOR THE [facility] OR [facility], REPORTS HIS BROTHER WILL PICK HIM UP FOR DISCHARGE HOME. IMPORTANT MESSAGE FROM MEDICARE PROVIDED AND EXPLAINED. [facility], , OF REFERRAL WITH DISCHARGE ORDER. CM FAXED REFERRAL TO [facility] AT [phone]. CM WAITING ADMISSION DETERMINATIONS FROM THE [facility]. Laster Hand: Tray Nielsen Appended by Tray Nielsen on 09/11/2018 17:10 VIDEO GAME MAKER: CM RECEIVED CALL FROM [facility] WHO INFORMED CM THAT PT WILL REQUIRE [facility] ASSESSMENT FOR [facility] FACILITY ADMISSION DUE TO POSSIBLE MENTAL RETARDATION NOTED IN CHART. CM TO COMPLETE AND SUBMIT FOR [facility] SCREENING SOON POSSIBLE. CM WAITING ADMISSION DETERMINATIONS FROM THE [facility]. Laster Hand: Tray Nielsen Coverage Notice Reviewer: [id number] Timmy Fournier Notice Issued Date-Time: 09/07/2018 17:47 Notice Type: Medicare Outpatient Observation Notice Notice Delivered To: Patient Relationship to Patient: Self Organizational Development Director Name: Delivery Method: HAND - Hand Delivered Yvonne Days: Prior Verbal Notification: Recipient Understood Notice: Yes Recipient Signature: Yes Med Rec Note Co-signed by Attending: Coverage Notice Comment: Reviewer: [id number] Timmy Nielsen Notice Issued Date-Time: 09/11/2018 11:10 Notice Type: IM Discharge Notice Notice Delivered To: Patient Relationship to Patient: Organizational Development Director Name: Delivery Method: HAND - Hand Delivered Yvonne Days: Prior Verbal Notification: Recipient Understood Notice: Yes Recipient Signature: Yes Med Rec Note Co-signed by Attending: Coverage Notice Comment: Reviewer: [id number] Timmy Nielsen Notice Issued Date-Time: 09/11/2018 11:10 Notice Type: Patient Choice Letter Notice Delivered To: Patient Relationship to Patient: Organizational Development Director Name: Delivery Method: HAND - Hand Delivered Yvonne Days: Prior Verbal Notification: Recipient Understood Notice: Yes Recipient Signature: Yes Med Rec Note Co-signed by Attending: Coverage Notice Comment: [facility] SN[facility] RE[facility] Last DP export: 09/11/18 1:13 Patient Name: FITZ MATAMOROS Page [id number] at 3188 All edits/amendments must be made on the electronic document DICTATION DATE: 09/11/181715 APPARATUS ENGINEERING TECHNOLOGIST: JUAN LUIS 09/11/181715 RPT#: [id number] DC DATE: STATUS: ADM IN [facility] [address] [place] [address] END OF REPORT
--- NOTE | ~2018-09-06 | MORECARE ---
CASE MANAGEMENT DISCHARGE SUMMARY PATIENT: FITZ MATAMOROS UNIT: [id number] ADM DATE: 09/08/18 AGE: 58 : 60 SEX: M ROOM/BED: D.1198 AUTHOR: ARA,DOC PHYSICIAN: REFERRING PHYSICIAN: CHANCE MORLEY MD DATE OF SERVICE: 09/12/18 Discharge Plan Patient Name: FITZ MATAMOROS [facility] [facility] 1960 Planned Disposition: Halfway Facility Anticipated Discharge Date: 09/11/18 Discharge Date: Expected LOS: 3 Initial Reviewer: [id number] Initial Review Date: 09/06/2018 Generated: 09/12/18 5:16 pm Comments DCP- Discharge Planning Updated by [id number]: Tray Nielsen on 09/11/18 4:[address] Patient Name: FITZ MATAMOROS Admission Status: ER Accout number: [id number] Admission Date: 09-08-2018 : 1960 Admission Diagnosis: Attending: CHANCE MORLEY Current LOS: 3 Anticipated DC Date: 09-11-2018 Planned Disposition: Halfway Facility Primary Insurance: MEDICARE A & B PLANNED EXTERNAL PROVIDER: [facility] [facility], MEDICARE REHAB BED Discharge Planning Comments: CM RECEIVED CALL FROM MAGUI SHILOH, . MAGUI REPORTS BEING PT'S BROTHER, PT LIVES WITH FAMILY AT [facility]. MAGUI REPORTS PT WAS IN REHAB AT [facility] 3-4 WEEKS AGO AND NOW CANNOT WALK WELL ENOUGH TO COME HOME. PT NEEDS REHAB TO COME BACK HOME AND HE HAS NO PREFERENCE ON PROVIDER OF REHAB. CM CONTACTED INPATIENT REHAB AT [place] WHO DECLINED PT THEY FEEL THAT PT WILL NOT BE ABLE TO GO BACK HOME AT DISCHARGE. CM MET WITH PT IN ROOM TO DISCUSS DISCHARGE PLANNING AND NEEDS. PT REPORTS SPEAKING TO HIS BROTHER AND IS IN AGREEMENT WITH REHAB ANYWHERE. PT IS LIVING HIS BROTHER'S HOME, REPORTS TO BE INDEPENDENT IN HIS CARE AT HOME. PT USES A WALKER AT HOME AND HAS NO MEDICAL EQUIPMENT PROVIDER PREFERENCE . PT HAS [facility] HAS BEEN SEEING PT AT HOME FOR NURSING AND THERAPY. CM DISCUSSED AVAILABILITY OF HOME HEALTH, REHAB SERVICES AND MEDICAL EQUIPMENT. PT SIGNED CHOICE FOR [facility] OR [facility], REPORTS HIS BROTHER WILL PICK HIM UP FOR DISCHARGE HOME. IMPORTANT MESSAGE FROM MEDICARE PROVIDED AND EXPLAINED. CM NOTIFIED [facility], , OF REFERRAL WITH DISCHARGE ORDER. CM FAXED REFERRAL TO [facility] AT [phone]. CM WAITING ADMISSION DETERMINATIONS FROM THE [facility]. Embedded Nurse: Tray Nielsen Appended by Tray Nielsen on 09/11/2018 17:10 AQUARIUM TANK ATTENDANT: CM RECEIVED CALL FROM [facility] WHO INFORMED CM THAT PT WILL REQUIRE [facility] ASSESSMENT FOR INTERMEDIATE FACILITY ADMISSION DUE TO POSSIBLE MENTAL RETARDATION NOTED IN CHART. CM TO COMPLETE AND SUBMIT FOR [facility] SCREENING SOON POSSIBLE. CM WAITING ADMISSION DETERMINATIONS FROM THE [facility]. Embedded Nurse: Tray Nielsen Coverage Notice Reviewer: [id number] Timmy Fournier Notice Issued Date-Time: 09/07/2018 17:47 Notice Type: Medicare Outpatient Observation Notice Notice Delivered To: Patient Relationship to Patient: Self Binder Chainstitch Name: Delivery Method: HAND - Hand Delivered Yvonne Days: Prior Verbal Notification: Recipient Understood Notice: Yes Recipient Signature: Yes Med Rec Note Co-signed by Attending: Coverage Notice Comment: Reviewer: [id number] Timmy Nielsen Notice Issued Date-Time: 09/11/2018 11:10 Notice Type: IM Discharge Notice Notice Delivered To: Patient Relationship to Patient: Binder Chainstitch Name: Delivery Method: HAND - Hand Delivered Yvonne Days: Prior Verbal Notification: Recipient Understood Notice: Yes Recipient Signature: Yes Med Rec Note Co-signed by Attending: Coverage Notice Comment: Reviewer: [id number] Timmy Nielsen Notice Issued Date-Time: 09/11/2018 11:10 Notice Type: Patient Choice Letter Notice Delivered To: Patient Relationship to Patient: Binder Chainstitch Name: Delivery Method: HAND - Hand Delivered Yvonne Days: Prior Verbal Notification: Recipient Understood Notice: Yes Recipient Signature: Yes Med Rec Note Co-signed by Attending: Coverage Notice Comment: [facility] SN[facility] RE[facility] Last DP export: 09/11/18 4:17 Patient Name: FITZ MATAMOROS Page 13780 at 1616 All edits/amendments must be made on the electronic document DICTATION DATE: 09/12/181615 STRINGED INSTRUMENT TUNER: DM 09/12/181615 RPT#: [id number] DC DATE: STATUS: ADM IN [facility] [address] [place] [address] END OF REPORT
--- NOTE | ~2018-09-06 | MORECARE ---
CASE MANAGEMENT DISCHARGE SUMMARY PATIENT: FITZ MATAMOROS UNIT: [id number] ADM DATE: 09/08/18 AGE: 58 : 60 SEX: M ROOM/BED: D.8056 AUTHOR: ARA,DOC PHYSICIAN: REFERRING PHYSICIAN: CHANCE MORLEY MD DATE OF SERVICE: 09/11/18 Discharge Plan Patient Name: FITZ MATAMOROS [facility] [facility] 1960 Planned Disposition: Intermediate Facility Anticipated Discharge Date: 09/11/18 Discharge Date: Expected LOS: 3 Initial Reviewer: [id number] Initial Review Date: 09/06/2018 Generated: 09/11/18 3:13 pm Comments DCP- Discharge Planning Updated by [id number]: Tray Nielsen on 09/11/18 1:[address] Patient Name: FITZ MATAMOROS Admission Status: ER Accout number: [id number] Admission Date: 09-08-2018 : 1960 Admission Diagnosis: Attending: CHANCE MORLEY Current LOS: 3 Anticipated DC Date: 09-11-2018 Planned Disposition: Intermediate Facility Primary Insurance: MEDICARE A & B PLANNED EXTERNAL PROVIDER: [facility], MEDICARE REHAB BED Discharge Planning Comments: CM RECEIVED CALL FROM MAGUI SHILOH, . MAGUI REPORTS BEING PT'S BROTHER, PT LIVES WITH FAMILY AT [facility]. MAGUI REPORTS PT WAS IN REHAB AT [facility] 3-4 WEEKS AGO AND NOW CANNOT WALK WELL ENOUGH TO COME HOME. PT NEEDS REHAB TO COME BACK HOME AND HE HAS NO PREFERENCE ON PROVIDER OF REHAB. CM CONTACTED INPATIENT REHAB AT [place] [facility] WHO DECLINED PT THEY FEEL THAT PT WILL NOT BE ABLE TO GO BACK HOME AT DISCHARGE. CM MET WITH PT IN ROOM TO DISCUSS DISCHARGE PLANNING AND NEEDS. PT REPORTS SPEAKING TO HIS BROTHER AND IS IN AGREEMENT WITH REHAB ANYWHERE. PT IS LIVING HIS BROTHER'S HOME, REPORTS TO BE INDEPENDENT IN HIS CARE AT HOME. PT USES A WALKER AT HOME AND HAS NO MEDICAL EQUIPMENT PROVIDER PREFERENCE . PT HAS [facility] HAS BEEN SEEING PT AT HOME FOR NURSING AND THERAPY. CM DISCUSSED AVAILABILITY OF HOME HEALTH, REHAB SERVICES AND MEDICAL EQUIPMENT. PT SIGNED CHOICE FOR [facility] OR [facility], REPORTS HIS BROTHER WILL PICK HIM UP FOR DISCHARGE HOME. IMPORTANT MESSAGE FROM MEDICARE PROVIDED AND EXPLAINED. CM NOTIFIED [facility] AND [facility], , OF REFERRAL WITH DISCHARGE ORDER. CM FAXED REFERRAL TO [facility] AT [phone]. CM WAITING ADMISSION DETERMINATIONS FROM THE [facility] AND [facility]. Plugger: Tray Nielsen Coverage Notice Reviewer: [id number] Timmy Fournier Notice Issued Date-Time: 09/07/2018 17:47 Notice Type: Medicare Outpatient Observation Notice Notice Delivered To: Patient Relationship to Patient: Self Bailing Machine Operator Name: Delivery Method: HAND - Hand Delivered Yvonne Days: Prior Verbal Notification: Recipient Understood Notice: Yes Recipient Signature: Yes Med Rec Note Co-signed by Attending: Coverage Notice Comment: Reviewer: [id number] Timmy Nielsen Notice Issued Date-Time: 09/11/2018 11:10 Notice Type: Patient Choice Letter Notice Delivered To: Patient Relationship to Patient: Bailing Machine Operator Name: Delivery Method: HAND - Hand Delivered Yvonne Days: Prior Verbal Notification: Recipient Understood Notice: Yes Recipient Signature: Yes Med Rec Note Co-signed by Attending: Coverage Notice Comment: [facility] SNF REHAB Reviewer: [id number] Timmy Nielsen Notice Issued Date-Time: 09/11/2018 11:10 Notice Type: IM Discharge Notice Notice Delivered To: Patient Relationship to Patient: Bailing Machine Operator Name: Delivery Method: HAND - Hand Delivered Yvonne Days: Prior Verbal Notification: Recipient Understood Notice: Yes Recipient Signature: Yes Med Rec Note Co-signed by Attending: Coverage Notice Comment: Last DP export: 09/11/18 1:04 Patient Name: FITZ MATAMOROS Page [phone] at 1413 All edits/amendments must be made on the electronic document DICTATION DATE: 09/11/181411 LABORATORY ASSOCIATE: JUAN LUIS 09/11/18 141 RPT#: [id number] DC DATE: STATUS: ADM IN [facility] [address] [place] [address] END OF REPORT
--- NOTE | ~2018-09-06 | MORECARE ---
CASE MANAGEMENT DISCHARGE SUMMARY PATIENT: FITZ MATAMOROS UNIT: [id number] ADM DATE: 09/08/18 AGE: 58 : 60 SEX: M ROOM/BED: D.5356 AUTHOR: FAVIO BULLOCK PHYSICIAN: REFERRING PHYSICIAN: CHANCE MORLEY MD DATE OF SERVICE: 09/13/18 Discharge Plan Patient Name: FITZ MATAMOROS Facility: [facility] : 1960 Planned Disposition: Shelter Facility Anticipated Discharge Date: 09/11/18 Discharge Date: Expected LOS: 3 Initial Reviewer: [id number] Initial Review Date: 09/06/2018 Generated: 09/13/18 2:09 pm Comments DCP- Discharge Planning Updated by [id number]: Tray Nielsen on 09/13/18 12:[address] Patient Name: FITZ MATAMOROS Encounter No: [id number] : 1960 Primary Insurance: MEDICARE A & B Anticipated DC Date: 09-11-2018 Planned Disposition: Shelter Facility External Planned Provider: FIRST ACCEPTING FACLITY DCP follow-up note: CM RECEVIED REQUEST FROM [employer] REQUESTING REFAX OF [facility] AND DOCUMENTS. CM REFAXED REQUESTED DOCUMENTS TO [employer] AT [phone]. CM RECEIVED DENIALS FROM: [facility], [facility], [facility] AND [facility]. CM RECEIVED CALLS FROM [facility] AND [facility] WHO ARE STILL CONSIDERING PT FOR REHAB ADMISSION. CM RECEIVED CALL FROM MAGUI MATAMOROS AND UPDATED ON PROGRESS AND DENIALS SO FAR. CM WAITING COMPLETION OF [facility] SCREENING AND DETERMINATION. CM WAITING ADMISSION DETERMINATIONS FOR REHAB FROM: [facility], [facility], [facility], [facility], [facility], [facility] AND [facility]. Tray Nielsen, CASE MANAGEMENT DCP- Discharge Planning Updated by [id number]: Tray Nielsen on 09/12/18 5:[address] Patient Name: FITZ MATAMOROS Encounter No: [id number] : 1960 Primary Insurance: MEDICARE A & B Anticipated DC Date: 09-11-2018 Planned Disposition: Shelter Facility External Planned Provider: [facility], MEDICARE REHAB BED DCP follow-up note: CM RECEIVED MESSAGE FROM [facility] WHO INFORMED CM THAT [facility] WOULD ACCEPT PT BUT FAMILY DOES NOT WANT PT PLACED IN [facility] FACILITY REHAB. CM MET WITH PT IN ROOM, CALLED MAGUI VIA PHONE FROM ROOM, . MAGUI INFORMED CM THAT [facility] WAS MISTAKEN, THEY DO WANT SKILLED REHAB, JUST NOT AT [facility] PT'S PAYEE (SISTER IN LAW / TARIK SPOUSE) VISITED [facility] AND FOUND THE FACILITY TO BE UNACCEPTABLE FOR REHAB PLACEMENT. THEY HAVE NO PREFERENCE ON FACILITY IN [place] OR [place]OUNDING AREA WITH EXCEPTION OF [facility] AND REHAB. [facility]IRAM COMPLETED WITH ASSISTANCE OF PT AND MAGUI. CHOICE LETTER COMPLETED. CM FAXED SRIRAM TO DR. MORLEY'S OFFICE, CALLED AND PROVIDED UPDATE TO ELOISA AT DR. BALDWIN OFFICE AND ASKED TO GET FORMS SIGNED SOON POSSIBLE. CM LATER CALLED DR. MORLEY'S OFFICE, SPOKE DIRECTLY TO AND PROVIDED UPDATE AND ASKED FOR SIGNED FORM RETURN TO COMPLETE [facility] SCREENING. CM RECEIVED [facility] SCREENING, FAXED TO [facility] AT [phone]. CM FAXED REFERRALS FOR REHAB [facility]CREENINGS [facility], [facility], [facility], [facility], [facility], [facility], [facility], [facility]. CM WAITING COMPLETION OF [facility] SCREENING AND DETERMINATION. CM WAITING ADMISSION DETERMINATIONS FOR REHAB FROM: [facility], [facility], [facility], [facility], [facility], [facility], [facility], [facility]. Tray Nielsen, CASE MANAGEMENT DCP- Discharge Planning Updated by [id number]: Tray Nielsen on 09/11/18 4:[address] Patient Name: [place] MATAMOROS Admission Status: ER Accout number: [id number] Admission Date: 09-08-2018 : 1960 Admission Diagnosis: Attending: CHANCE MORLEY Current LOS: 3 Anticipated DC Date: 09-11-2018 Planned Disposition: Shelter Facility Primary Insurance: MEDICARE A & B PLANNED EXTERNAL PROVIDER: [facility] OR [place], MEDICARE REHAB BED Discharge Planning Comments: CM RECEIVED CALL FROM MAGUI MATAMOROS, . MAGUI REPORTS BEING PT'S BROTHER, PT LIVES WITH [facility] AT [facility]. MAGUI REPORTS PT WAS IN REHAB AT [facility] 3-4 WEEKS AGO AND NOW CANNOT WALK WELL ENOUGH TO COME HOME. PT NEEDS REHAB TO COME BACK HOME AND HE HAS NO PREFERENCE ON PROVIDER OF REHAB. CM CONTACTED INPATIENT REHAB AT [place] WHO DECLINED PT THEY FEEL THAT PT WILL NOT BE ABLE TO GO BACK HOME AT DISCHARGE. CM MET WITH PT IN ROOM TO DISCUSS DISCHARGE PLANNING AND NEEDS. PT REPORTS SPEAKING TO HIS BROTHER AND IS IN AGREEMENT WITH REHAB ANYWHERE. PT IS LIVING HIS BROTHER'S HOME, REPORTS TO BE INDEPENDENT IN HIS CARE AT HOME. PT USES A WALKER AT HOME AND HAS NO MEDICAL EQUIPMENT PROVIDER PREFERENCE . PT HAS [facility] HAS BEEN SEEING PT AT HOME FOR NURSING AND THERAPY. CM DISCUSSED AVAILABILITY OF HOME HEALTH, REHAB SERVICES AND MEDICAL EQUIPMENT. PT SIGNED CHOICE FOR [facility] OR [facility], REPORTS HIS BROTHER WILL PICK HIM UP FOR DISCHARGE HOME. IMPORTANT MESSAGE FROM MEDICARE PROVIDED AND EXPLAINED. [facility], , OF REFERRAL WITH DISCHARGE ORDER. CM FAXED REFERRAL TO [facility] AT [phone]. CM WAITING ADMISSION DETERMINATIONS FROM [facility]. Mattress Stuffer: Tray Nielsen Appended by Tray Nielsen on 09/11/2018 17:10 YOUTH CARE PROFESSIONAL: CM RECEIVED CALL FROM [facility] WHO INFORMED CM THAT PT WILL REQUIRE [facility] ASSESSMENT FOR [facility]DC FACILITY ADMISSION DUE TO POSSIBLE MENTAL RETARDATION NOTED IN CHART. CM TO COMPLETE AND SUBMIT FOR [facility] SCREENING SOON POSSIBLE. CM WAITING ADMISSION DETERMINATIONS FROM THE [facility]. Mattress Stuffer: Tray Nielsen Coverage Notice Reviewer: [id number] - Suzanne Fournier Notice Issued Date-Time: 09/07/2018 17:47 Notice Type: Medicare Outpatient Observation Notice Notice Delivered To: Patient Relationship to Patient: Self Chlorine Cell Tender Name: Delivery Method: HAND - Hand Delivered Yvonne Days: Prior Verbal Notification: Recipient Understood Notice: Yes Recipient Signature: Yes Med Rec Note Co-signed by Attending: Coverage Notice Comment: Reviewer: [id number] - Tray Nielsen Notice Issued Date-Time: 09/11/2018 11:10 Notice Type: IM Discharge Notice Notice Delivered To: Patient Relationship to Patient: Chlorine Cell Tender Name: Delivery Method: HAND - Hand Delivered Yvonne Days: Prior Verbal Notification: Recipient Understood Notice: Yes Recipient Signature: Yes Med Rec Note Co-signed by Attending: Coverage Notice Comment: Reviewer: LORY Nielsen Notice Issued Date-Time: 09/11/2018 11:10 Notice Type: Patient Choice Letter Notice Delivered To: Patient Relationship to Patient: Chlorine Cell Tender Name: Delivery Method: HAND - Hand Delivered Yvonne Days: Prior Verbal Notification: Recipient Understood Notice: Yes Recipient Signature: Yes Med Rec Note Co-signed by Attending: Coverage Notice Comment: [facility] Reviewer: [id number] Timmy Nielsen Notice Issued Date-Time: 09/12/2018 10:00 Notice Type: Patient Choice Letter Notice Delivered To: Family Member Relationship to Patient: Brother Chlorine Cell Tender Name: MAGUI MATAMOROS Delivery Method: PHONE - Phone Yvonne Days: Prior Verbal Notification: Recipient Understood Notice: Yes Recipient Signature: Yes Med Rec Note Co-signed by Attending: Coverage Notice Comment: ALL SNF REHABS EXCEPT [facility] [place]. Last DP export: 09/12/18 5:14 Patient Name: FITZ MATAMOROS Page [phone] at 1309 All edits/amendments must be made on the electronic document DICTATION DATE: 09/13/18 1309 INFORMATION MANAGEMENT MANAGER: JUAN LUIS 09/13/18 1309 RPT#: [id number] DC DATE: STATUS: ADM IN [facility] [address] [place] [address] END OF REPORT
--- NOTE | ~2018-09-06 | MORECARE ---
CASE MANAGEMENT DISCHARGE SUMMARY PATIENT: FITZ MATAMOROS UNIT: [id number] ADM DATE: 09/08/18 AGE: 58 : 60 SEX: M ROOM/BED: D.8389 AUTHOR: ARA,DOC PHYSICIAN: REFERRING PHYSICIAN: CHANCE MORLEY MD DATE OF SERVICE: 09/12/18 Discharge Plan Patient Name: FITZ MATAMOROS [facility] [facility] 1960 Planned Disposition: Nursing Home Facility Anticipated Discharge Date: 09/11/18 Discharge Date: Expected LOS: 3 Initial Reviewer: [id number] Initial Review Date: 09/06/2018 Generated: 09/12/18 6:37 pm Comments DCP- Discharge Planning Updated by [id number]: Tray Nielsen on 09/11/18 4:[address] Patient Name: FITZ MATAMOROS Admission Status: ER Accout number: [id number] Admission Date: 09-08-2018 : 1960 Admission Diagnosis: Attending: CHANCE MORLEY Current LOS: 3 Anticipated DC Date: 09-11-2018 Planned Disposition: Nursing Home Facility Primary Insurance: MEDICARE A & B PLANNED EXTERNAL PROVIDER: [facility], MEDICARE REHAB BED Discharge Planning Comments: CM RECEIVED CALL FROM MAGUI SHILOH, . MAGUI REPORTS BEING PT'S BROTHER, PT LIVES WITH FAMILY AT [facility]. MAGUI REPORTS PT WAS IN REHAB AT [facility] 3-4 WEEKS AGO AND NOW CANNOT WALK WELL ENOUGH TO COME HOME. PT NEEDS REHAB TO COME BACK HOME AND HE HAS NO PREFERENCE ON PROVIDER OF REHAB. CM CONTACTED INPATIENT REHAB AT [place] WHO DECLINED PT THEY FEEL THAT PT WILL NOT BE ABLE TO GO BACK HOME AT DISCHARGE. CM MET WITH PT IN ROOM TO DISCUSS DISCHARGE PLANNING AND NEEDS. PT REPORTS SPEAKING TO HIS BROTHER AND IS IN AGREEMENT WITH REHAB ANYWHERE. PT IS LIVING HIS BROTHER'S HOME, REPORTS TO BE INDEPENDENT IN HIS CARE AT HOME. PT USES A WALKER AT HOME AND HAS NO MEDICAL EQUIPMENT PROVIDER PREFERENCE . PT HAS [facility] HAS BEEN SEEING PT AT HOME FOR NURSING AND THERAPY. CM DISCUSSED AVAILABILITY OF HOME HEALTH, REHAB SERVICES AND MEDICAL EQUIPMENT. PT SIGNED CHOICE FOR [facility] OR [facility], REPORTS HIS BROTHER WILL PICK HIM UP FOR DISCHARGE HOME. IMPORTANT MESSAGE FROM MEDICARE PROVIDED AND EXPLAINED. CM NOTIFIED [facility], , OF REFERRAL WITH DISCHARGE ORDER. CM FAXED REFERRAL TO [facility] AT [phone]. CM WAITING ADMISSION DETERMINATIONS FROM THE [facility]. Assembly Line Leader: Tray Nielsen Appended by Tray Nielsen on 09/11/2018 17:10 TMD TEACHER: CM RECEIVED CALL FROM [facility] WHO INFORMED CM THAT PT WILL REQUIRE [facility] ASSESSMENT FOR ALF FACILITY ADMISSION DUE TO POSSIBLE MENTAL RETARDATION NOTED IN CHART. CM TO COMPLETE AND SUBMIT FOR [facility] SCREENING SOON POSSIBLE. CM WAITING ADMISSION DETERMINATIONS FROM THE [facility]. Assembly Line Leader: Tray Nielsen External Providers External Provider: [facility] Next Contact Date: 09/13/2018 Service Request Date: Service Type: Resolution: Reviewer: Comments: Coverage Notice Reviewer: [id number] Timmy Fournier Notice Issued Date-Time: 09/07/2018 17:47 Notice Type: Medicare Outpatient Observation Notice Notice Delivered To: Patient Relationship to Patient: Self Firmware Software Verification Engineer Name: Delivery Method: HAND - Hand Delivered Yvonne Days: Prior Verbal Notification: Recipient Understood Notice: Yes Recipient Signature: Yes Med Rec Note Co-signed by Attending: Coverage Notice Comment: Reviewer: [id number] Timmy Nielsen Notice Issued Date-Time: 09/11/2018 11:10 Notice Type: IM Discharge Notice Notice Delivered To: Patient Relationship to Patient: Firmware Software Verification Engineer Name: Delivery Method: HAND - Hand Delivered Yvonne Days: Prior Verbal Notification: Recipient Understood Notice: Yes Recipient Signature: Yes Med Rec Note Co-signed by Attending: Coverage Notice Comment: Reviewer: [id number] Timmy Nielsen Notice Issued Date-Time: 09/11/2018 11:10 Notice Type: Patient Choice Letter Notice Delivered To: Patient Relationship to Patient: Firmware Software Verification Engineer Name: Delivery Method: HAND - Hand Delivered Yvonne Days: Prior Verbal Notification: Recipient Understood Notice: Yes Recipient Signature: Yes Med Rec Note Co-signed by Attending: Coverage Notice Comment: [facility] SNF REHAB Last DP export: 09/12/18 3:16 Patient Name: FITZ MATAMOROS Page [phone] at 1738 All edits/amendments must be made on the electronic document DICTATION DATE: 09/12/181736 AUTOMOTIVE METALSMITH: JUAN LUIS 09/12/181736 RPT#: [id number] DC DATE: STATUS: ADM IN [facility] [address] [place] [address] END OF REPORT
--- NOTE | ~2018-09-06 | MORECARE ---
CASE MANAGEMENT DISCHARGE SUMMARY PATIENT: FITZ MATAMOROS UNIT: [id number] ADM DATE: 09/08/18 AGE: 58 : 60 SEX: M ROOM/BED: D.4886 AUTHOR: ARA,DOC PHYSICIAN: REFERRING PHYSICIAN: CHANCE MORLEY MD DATE OF SERVICE: 09/12/18 Discharge Plan Patient Name: FITZ MATAMOROS Facility: [facility] : 1960 Planned Disposition: Longterm Facility Anticipated Discharge Date: 09/11/18 Discharge Date: Expected LOS: 3 Initial Reviewer: [id number] Initial Review Date: 09/06/2018 Generated: 09/12/18 7:14 pm Comments DCP- Discharge Planning Updated by [id number]: Tray Nielsen on 09/12/18 5:[address] Patient Name: FITZ MATAMOROS Encounter No: [id number] : 1960 Primary Insurance: MEDICARE A & B Anticipated DC Date: 09-11-2018 Planned Disposition: Longterm Facility External Planned Provider: [facility], MEDICARE REHAB BED DCP follow-up note: CM RECEIVED MESSAGE FROM [facility] WHO INFORMED CM THAT [facility] WOULD ACCEPT PT BUT FAMILY DOES NOT WANT PT PLACED IN [facility] F[facility] REHAB. CM MET WITH PT IN ROOM, CALLED MAGUI VIA PHONE FROM ROOM, . MAGUI INFORMED CM THAT [facility] WAS MISTAKEN, THEY DO WANT SKILLED REHAB, JUST NOT AT [facility] PT'S PAYEE (SISTER IN LAW / TARIK SPOUSE) VISITED [facility] AND FOUND THE FACILITY TO BE UNACCEPTABLE FOR REHAB PLACEMENT. THEY HAVE NO PREFERENCE ON FACILITY IN [place] OR [place] WITH EXCEPTION OF [facility] AND REHAB. [facility]IRAM COMPLETED WITH ASSISTANCE OF PT AND MAGUI. CHOICE LETTER COMPLETED. CM FAXED SRIRAM TO DR. MORLEY'S OFFICE, CALLED AND PROVIDED UPDATE TO ELOISA AT DR. BALDWIN OFFICE AND ASKED TO GET FORMS SIGNED SOON POSSIBLE. CM LATER CALLED DR. MORLEY'S OFFICE, SPOKE DIRECTLY TO AND PROVIDED UPDATE AND ASKED FOR SIGNED FORM RETURN TO COMPLETE [facility] SCREENING. CM RECEIVED [facility] SCREENING, FAXED TO [facility] AT [phone]. CM FAXED REFERRALS FOR [facility], [facility], [facility], [facility], [facility], [facility]. CM WAITING COMPLETION OF [facility] SCREENING AND DETERMINATION. CM WAITING ADMISSION DETERMINATIONS FOR REHAB FROM: [facility], [facility], [facility], [facility], [place], [facility], [facility], [facility]. Tray Nielsen, CASE MANAGEMENT DCP- Discharge Planning Updated by [id number]: Tray Nielsen on 09/11/18 4:[address] Patient Name: FITZ MATAMOROS Admission Status: ER Accout number: [id number] Admission Date: 09-08-2018 : 1960 Admission Diagnosis: Attending: CHANCE MORLEY Current LOS: 3 Anticipated DC Date: 09-11-2018 Planned Disposition: Longterm Facility Primary Insurance: MEDICARE A & B PLANNED EXTERNAL PROVIDER: [facility] [place] [facility], MEDICARE REHAB BED Discharge Planning Comments: CM RECEIVED CALL FROM MAGUI MATAMOROS, . MAGUI REPORTS BEING PT'S BROTHER, PT LIVES WITH FAMILY AT [facility]. MAGUI REPORTS [facility] AND NOW CANNOT WALK WELL ENOUGH TO COME HOME. PT NEEDS REHAB TO COME BACK HOME AND HE HAS NO PREFERENCE ON PROVIDER OF REHAB. CM CONTACTED INPATIENT REHAB AT [place] WHO DECLINED PT THEY FEEL THAT PT WILL NOT BE ABLE TO GO BACK HOME AT DISCHARGE. CM MET WITH PT IN ROOM TO DISCUSS DISCHARGE PLANNING AND NEEDS. PT REPORTS SPEAKING TO HIS BROTHER AND IS IN AGREEMENT WITH REHAB ANYWHERE. PT IS LIVING HIS BROTHER'S HOME, REPORTS TO BE INDEPENDENT IN HIS CARE AT HOME. PT USES A WALKER AT HOME AND HAS NO MEDICAL EQUIPMENT PROVIDER PREFERENCE . PT HAS [facility] HAS BEEN SEEING PT AT HOME FOR NURSING AND THERAPY. CM DISCUSSED AVAILABILITY OF HOME HEALTH, REHAB SERVICES AND MEDICAL EQUIPMENT. PT SIGNED CHOICE FOR [facility], REPORTS HIS BROTHER WILL PICK HIM UP FOR DISCHARGE HOME. IMPORTANT MESSAGE FROM MEDICARE PROVIDED AND EXPLAINED. CM NOTIFIED [facility] [place] AND [facility], , OF REFERRAL WITH DISCHARGE ORDER. CM FAXED REFERRAL TO [facility] AT [phone]. CM WAITING ADMISSION DETERMINATIONS FROM THE [facility]. Welding Machine Operator Thermit: Tray iNelsen Appended by Tray Nielsen on 09/11/2018 17:10 FIELD INSTALLER: CM RECEIVED CALL FROM [facility] WHO INFORMED CM THAT PT WILL REQUIRE [facility] ASSESSMENT FOR [facility] FACILITY ADMISSION DUE TO POSSIBLE MENTAL RETARDATION NOTED IN CHART. CM TO COMPLETE AND SUBMIT FOR [facility] SCREENING SOON POSSIBLE. CM WAITING ADMISSION DETERMINATIONS FROM THE [facility]. Welding Machine Operator Thermit: Tray Nielsen Coverage Notice Reviewer: [id number] Timmy Nielsen Notice Issued Date-Time: 09/12/2018 10:00 Notice Type: Patient Choice Letter Notice Delivered To: Family Member Relationship to Patient: Brother Protozoologist Name: MAGUI MATAMOROS Delivery Method: PHONE - Phone Yvonne Days: Prior Verbal Notification: Recipient Understood Notice: Yes Recipient Signature: Yes Med Rec Note Co-signed by Attending: Coverage Notice Comment: ALL SNF REHABS EXCEPT [facility]. Reviewer: [id number] Timmy Fournier Notice Issued Date-Time: 09/07/2018 17:47 Notice Type: Medicare Outpatient Observation Notice Notice Delivered To: Patient Relationship to Patient: Self Protozoologist Name: Delivery Method: HAND - Hand Delivered Yvonne Days: Prior Verbal Notification: Recipient Understood Notice: Yes Recipient Signature: Yes Med Rec Note Co-signed by Attending: Coverage Notice Comment: Reviewer: [id number] Timmy Nielsen Notice Issued Date-Time: 09/11/2018 11:10 Notice Type: Patient Choice Letter Notice Delivered To: Patient Relationship to Patient: Protozoologist Name: Delivery Method: HAND - Hand Delivered Yvonne Days: Prior Verbal Notification: Recipient Understood Notice: Yes Recipient Signature: Yes Med Rec Note Co-signed by Attending: Coverage Notice Comment: [facility] OR [facility] RE[facility] Reviewer: [id number] Timmy Nielsen Notice Issued Date-Time: 09/11/2018 11:10 Notice Type: IM Discharge Notice Notice Delivered To: Patient Relationship to Patient: Protozoologist Name: Delivery Method: HAND - Hand Delivered Yvonne Days: Prior Verbal Notification: Recipient Understood Notice: Yes Recipient Signature: Yes Med Rec Note Co-signed by Attending: Coverage Notice Comment: Last DP export: 09/12/18 4:59 Patient Name: FITZ MATAMOROS Page [id number] at 1814 All edits/amendments must be made on the electronic document DICTATION DATE: 09/12/181813 LICENSED LAND SURVEYOR: JUAN LUIS 09/12/181813 RPT#: [id number] DC DATE: STATUS: ADM IN [facility] [address] [place] [address] END OF REPORT
--- NOTE | ~2018-09-06 | MORECARE ---
CASE MANAGEMENT DISCHARGE SUMMARY PATIENT: FITZ MATAMOROS UNIT: [id number] ADM DATE: 09/08/18 AGE: 58 : 60 SEX: M ROOM/BED: D.6272 AUTHOR: ARA,DOC PHYSICIAN: REFERRING PHYSICIAN: CHANCE MORLEY MD DATE OF SERVICE: 09/12/18 Discharge Plan Patient Name: FITZ MATAMOROS [facility] [facility] 1960 Planned Disposition: [facility] Anticipated Discharge Date: 09/11/18 Discharge Date: Expected LOS: 3 Initial Reviewer: [email or web address] Initial Review Date: 09/06/2018 Generated: 09/12/18 6:52 pm Comments DCP- Discharge Planning Updated by [email or web address]: Tray Nielsen on 09/11/18 4:[address] Patient Name: FITZ MATAMOROS Admission Status: ER Accout number: [id number] Admission Date: 09-08-2018 : 1960 Admission Diagnosis: Attending: CHANCE MORLEY Current LOS: 3 Anticipated DC Date: 09-11-2018 Planned Disposition: Prison Facility Primary Insurance: MEDICARE A & B PLANNED EXTERNAL PROVIDER: [facility] [place], MEDICARE REHAB BED Discharge Planning Comments: CM RECEIVED CALL FROM MAGUI SHILOH, . MAGUI REPORTS BEING PT'S BROTHER, PT LIVES WITH FAMILY AT [facility] MAGUI REPORTS PT WAS IN REHAB AT [facility] 3-4 WEEKS AGO AND NOW CANNOT WALK WELL ENOUGH TO COME HOME. PT NEEDS REHAB TO COME BACK HOME AND HE HAS NO PREFERENCE ON PROVIDER OF REHAB. CM CONTACTED INPATIENT REHAB AT [place] WHO DECLINED PT THEY FEEL THAT PT WILL NOT BE ABLE TO GO BACK HOME AT DISCHARGE. CM MET WITH PT IN ROOM TO DISCUSS DISCHARGE PLANNING AND NEEDS. PT REPORTS SPEAKING TO HIS BROTHER AND IS IN AGREEMENT WITH REHAB ANYWHERE. PT IS LIVING HIS BROTHER'S HOME, REPORTS TO BE INDEPENDENT IN HIS CARE AT HOME. PT USES A WALKER AT HOME AND HAS NO MEDICAL EQUIPMENT PROVIDER PREFERENCE . PT HAS [facility] HAS BEEN SEEING PT AT HOME FOR NURSING AND THERAPY. CM DISCUSSED AVAILABILITY OF HOME HEALTH, REHAB SERVICES AND MEDICAL EQUIPMENT. PT SIGNED CHOICE FOR [facility] OR [facility], REPORTS HIS BROTHER WILL PICK HIM UP FOR DISCHARGE HOME. IMPORTANT MESSAGE FROM MEDICARE PROVIDED AND EXPLAINED. CM NOTIFIED [facility], , OF REFERRAL WITH DISCHARGE ORDER. CM FAXED REFERRAL TO [facility] AT [phone]. CM WAITING ADMISSION DETERMINATIONS FROM [facility]. Shot Grinder Operator: Tray Nielsen Appended by Tray Nielsen on 09/11/2018 17:10 SECURITY OPERATIONS ENGINEER: CM RECEIVED CALL FROM [facility] WHO INFORMED CM THAT PT WILL REQUIRE [facility]IOR [facility]ING FACILITY ADMISSION DUE TO POSSIBLE MENTAL RETARDATION NOTED IN CHART. CM TO COMPLETE AND SUBMIT FOR [facility] SCREENING SOON POSSIBLE. CM WAITING ADMISSION DETERMINATIONS FROM [facility]. Shot Grinder Operator: Tray Nielsen External Providers External Provider: [facility] [place] Next Contact Date: 09/13/2018 Service Request Date: Service Type: Resolution: Reviewer: Comments: [facility] Next Contact Date: 09/13/2018 Service Request Date: Service Type: Resolution: Reviewer: Comments: [facility] Next Contact Date: 09/13/2018 Service Request Date: Service Type: Resolution: Reviewer: Comments: [facility] Next Contact Date: 09/13/2018 Service Request Date: Service Type: Resolution: Reviewer: Comments: Coverage Notice Reviewer: [id number] Timmy Fournier Notice Issued Date-Time: 09/07/2018 17:47 Notice Type: Medicare Outpatient Observation Notice Notice Delivered To: Patient Relationship to Patient: Self International Coordinator Name: Delivery Method: HAND - Hand Delivered Yvonne Days: Prior Verbal Notification: Recipient Understood Notice: Yes Recipient Signature: Yes Med Rec Note Co-signed by Attending: Coverage Notice Comment: Reviewer: [id number] - Tray Nielsen Notice Issued Date-Time: 09/11/2018 11:10 Notice Type: Patient Choice Letter Notice Delivered To: Patient Relationship to Patient: International Coordinator Name: Delivery Method: HAND - Hand Delivered Yvonne Days: Prior Verbal Notification: Recipient Understood Notice: Yes Recipient Signature: Yes Med Rec Note Co-signed by Attending: Coverage Notice Comment: [facility] Reviewer: [id number] Timmy Nielsen Notice Issued Date-Time: 09/11/2018 11:10 Notice Type: IM Discharge Notice Notice Delivered To: Patient Relationship to Patient: International Coordinator Name: Delivery Method: HAND - Hand Delivered Yvonne Days: Prior Verbal Notification: Recipient Understood Notice: Yes Recipient Signature: Yes Med Rec Note Co-signed by Attending: Coverage Notice Comment: Last DP export: 09/12/18 4:45 Patient Name: FITZ MATAMOROS Page [id number] at 1752 All edits/amendments must be made on the electronic document DICTATION DATE: 09/12/181751 INSTRUMENT TESTER: JUAN LUIS 09/12/181751 RPT#: [id number] DC DATE: STATUS: ADM IN [facility] [address] [place] [address] END OF REPORT
[~2018-09-06 13:57] MED LIST: CYMBALTA30 MG PO; DEPAKOTE ER500 MG PO; ELIQUIS5 MG PO; FAMOTIDINE10 MG PO; GLUCOPHAGE1000 MG PO; ISOSORBIDE MONO30 M1 PO; KLOR-CON M2020 MEQ PO; LASIX40 MG PO; METOPROLOL TART25 MG PO; PROVERA10 MG PO; SYNTHROID125 MCG PO; TALWIN NX1 TAB PO; TOPAMAX50 MG PO; ULTRAM50 MG PO; VITAMIN D250000 UNIT PO
[2018-09-06 16:06] VITALS: BP 107/73
[2018-09-06 16:11] LABS: BASOPHILS 0.1 % (0-2); EOSINOPHILS 0.1 % (0-7); HEMATOCRIT 38.1 % (42.0-54.0); HEMOGLOBIN 12.3 g/dL (13.5-17.5); IMMATURE GRANULOCYTES 1.4 % (0-5); LYMPHOCYTES 17.9 % (15-50); MCH 30.7 pg (26.0-34.0); MCHC 32.3 g/dL (31.0-37.0); MEAN PLATELET VOLUME 9.6 fL (7.4-10.4); MONOCYTES 3.6 % (2-11); NEUTROPHILS 76.9 % (40-80); RBC 4.01 10x6/uL (4.20-6.10); RDW 14.7 % (11.5-14.5)
[2018-09-06 16:16] LABS: PLATELET COUNT 211 10x3/uL (130-400)
[2018-09-06 16:23] LABS: APTT 33.4 SECONDS (22.8-39.4); INR 1.31 (0.85-1.17); PROTIME 15.9 SECONDS (11.6-15.0)
[2018-09-06 16:24] LABS: D-DIMER-QUANTITATIVE 0.83 ug/mLFEU (0.20-0.54)
[2018-09-06 16:27] LABS: ALBUMIN 2.6 g/dL (3.4-5.0); ALKALINE PHOSPHATASE 68 U/L (46-116); ALT (SGPT) 7 U/L (10-68); BILIRUBIN - TOTAL 0.25 mg/dL (0.2-1.3); CALC OSMOLALITY 278 mosm/kg (275-300); CALCIUM 8.9 mg/dL (8.5-10.1); CARBON DIOXIDE 23.9 mmol/L (21.0-32.0); CHLORIDE - SERUM 104 mmol/L (98-107); CREATININE - SERUM 1.2 mg/dL (0.6-1.3); POTASSIUM - SERUM 5.2 mmol/L (3.5-5.1); PROTEIN - SERUM 7.7 g/dL (6.4-8.2); SODIUM 139 mmol/L (136-145); UREA NITROGEN 14 mg/dL (7-18); eGFR NON AFRICAN AMERICAN 66 mL/min (90-120)
[2018-09-06 16:29] LABS: GLUCOSE 96 mg/dL (74-106)
[2018-09-06 16:37] LABS: APPEARANCE CLEAR (CLEAR); BACTERIA NONE SEEN /hpf (NONE SEEN); BILIRUBIN NEGATIVE (NEGATIVE); COLOR YELLOW (YELLOW); EPITHELIAL CELLS NSEEN /hpf (0-5); GLUCOSE NEGATIVE (NEGATIVE); KETONE NEGATIVE (NEGATIVE); NITRITE NEGATIVE (NEGATIVE); PROTEIN TRACE mg/dL (NEGATIVE); RED CELLS - URINE NONE SEEN /hpf (0-5); SPECIFIC GRAVITY 1.015 (1.005-1.020); WHITE CELLS - URINE NSEEN /hpf (0-5)
[2018-09-06 16:37] LABS: CKMB 0.2 U/L (0.0-3.6); CREATINE KINASE 40 UL (21-232); THYROID STIMULATING HORMONE 2.78 uIU/mL (0.36-3.74); TROPONIN-I 0.017 ng/mL (0.000-0.060)
[2018-09-06 17:01] VITALS: BP 113/83
[2018-09-06 18:00] VITALS: BP 122/75
[2018-09-06 19:00] VITALS: BP 142/90
[2018-09-06 19:01] VITALS: BP 126/89
[2018-09-07] VITALS (7 sets, daily range): BP systolic 114–142; BP diastolic 63–93; Ht 188 cm; Wt 229.6 kg
[2018-09-07 08:48] LABS: ALBUMIN 2.4 g/dL (3.4-5.0); ALKALINE PHOSPHATASE 60 U/L (46-116); ALT (SGPT) 8 U/L (10-68); BILIRUBIN - TOTAL 0.18 mg/dL (0.2-1.3); CALC OSMOLALITY 274 mosm/kg (275-300); CALCIUM 8.1 mg/dL (8.5-10.1); CARBON DIOXIDE 20.5 mmol/L (21.0-32.0); CHLORIDE - SERUM 106 mmol/L (98-107); CKMB 0.1 U/L (0.0-3.6); CREATINE KINASE 38 UL (21-232); CREATININE - SERUM 0.9 mg/dL (0.6-1.3); GLUCOSE 89 mg/dL (74-106); POTASSIUM - SERUM 4.7 mmol/L (3.5-5.1); PROTEIN - SERUM 6.4 g/dL (6.4-8.2); SODIUM 138 mmol/L (136-145); TROPONIN-I 0.018 ng/mL (0.000-0.060); UREA NITROGEN 13 mg/dL (7-18); eGFR NON AFRICAN AMERICAN > 90 mL/min (90-120)
[2018-09-07 08:50] LABS: BASOPHILS 0.4 % (0-2); EOSINOPHILS 0.9 % (0-7); HEMATOCRIT 39.7 % (42.0-54.0); HEMOGLOBIN 12.4 g/dL (13.5-17.5); IMMATURE GRANULOCYTES 1.1 % (0-5); LYMPHOCYTES 23.4 % (15-50); MCH 30.5 pg (26.0-34.0); MCHC 31.2 g/dL (31.0-37.0); MCV 97.5 fL (80.0-100.0); MEAN PLATELET VOLUME 10.6 fL (7.4-10.4); MONOCYTES 17.5 % (2-11); NEUTROPHILS 56.7 % (40-80); PLATELET COUNT 147 10x3/uL (130-400); RBC 4.07 10x6/uL (4.20-6.10); RDW 15.1 % (11.5-14.5); WBC 9.6 10x3/uL (4.8-10.8)
[2018-09-08 00:10] VITALS: BP 143/87
[2018-09-08 04:00] VITALS: BP 138/89
[2018-09-08 08:35] VITALS: BP 119/79
[2018-09-08 11:55] VITALS: BP 131/73
[2018-09-08 17:19] VITALS: BP 118/79
[2018-09-08 20:00] VITALS: BP 133/83
[2018-09-09 00:06] VITALS: BP 128/71
[2018-09-09 04:00] VITALS: BP 105/58
[2018-09-09 08:44] VITALS: BP 97/56
[2018-09-09 12:09] VITALS: BP 109/61
[2018-09-09 20:30] VITALS: BP 116/52
[2018-09-10 00:30] VITALS: BP 108/50
[2018-09-10 04:30] VITALS: BP 108/66
[2018-09-10 10:12] VITALS: BP 150/62
[2018-09-10 11:00] VITALS: BP 84/55
[2018-09-10 15:00] VITALS: BP 103/53
[2018-09-10 20:00] VITALS: BP 112/55
[2018-09-11 06:59] VITALS: BP 116/60
[2018-09-11 08:36] VITALS: BP 158/72
[2018-09-11 21:09] VITALS: BP 123/69
[2018-09-12 01:23] VITALS: BP 83/53
[2018-09-12 06:15] VITALS: BP 99/66
[2018-09-12 08:17] VITALS: BP 100/65
[2018-09-12 13:00] VITALS: BP 111/62
[2018-09-12 20:00] VITALS: BP 112/72
[2018-09-13 04:00] VITALS: BP 111/60
[2018-09-13 08:16] VITALS: BP 108/67
[2018-09-13 11:37] VITALS: BP 107/70
[2018-09-13 15:30] VITALS: BP 107/72
[2018-09-13 20:00] VITALS: BP 110/62
[2018-09-14] VITALS: BP 118/69
[2018-09-14 04:00] VITALS: BP 111/58
[2018-09-14 08:05] VITALS: BP 104/70
[2018-09-14 14:21] VITALS: BP 108/76
[2018-09-14 21:08] VITALS: BP 91/56
[2018-09-15] VITALS: BP 105/66
[2018-09-15 04:00] VITALS: BP 91/52
[2018-09-15 08:34] VITALS: BP 131/81
[2018-09-15 12:05] VITALS: BP 105/78
[2018-09-15 16:55] VITALS: BP 111/78
[2018-09-15 20:00] VITALS: BP 110/67
[2018-09-16] VITALS: BP 93/58
[2018-09-16 04:00] VITALS: BP 92/64
[2018-09-16 09:24] VITALS: BP 112/69
[2018-09-16 13:28] VITALS: BP 118/80
[2018-09-16 16:47] VITALS: BP 106/70
[2018-09-16 20:00] VITALS: BP 91/59
[2018-09-17 04:00] VITALS: BP 90/47
[2018-09-17 10:56] VITALS: BP 114/78
== END 2018-09-17 13:38 | disposition home or self-care (01) | DRG 315 ==
LOC: D.ER 13:57 → D.EDHOLD 17:39 → OBSVTIME 17:39 → D.M2 18:47
PROVIDERS: Family Medicine
DX: I95.9 Hypotension, unspecified (principal); G45.9 Transient cerebral ischemic attack, unspecified; I42.9 Cardiomyopathy, unspecified; I69.851 Hemiplegia and hemiparesis following other cerebrovascular disease affecting right dominant side; Z68.44 Body mass index [BMI] 60.0-69.9, adult; I48.91 Unspecified atrial fibrillation; E11.9 Type 2 diabetes mellitus without complications; I10 Essential (primary) hypertension; E03.9 Hypothyroidism, unspecified; E66.01 Morbid (severe) obesity due to excess calories; G47.30 Sleep apnea, unspecified